=== PATIENT | female | born 1965 | race Caucasian/White ===

== ENCOUNTER 2018-06-24 16:11 | Emergency (ER) | payer OTHER ==
[~2018-06-24] VITALS: Ht 170.2 cm; Wt 117.0 kg
[2018-06-24] MEDS ORDERED: BENZOCAINE (DENTAL) 20 % SPRAY 60ML MT ONE ×2 (19:00→19:13)
[2018-06-24] MEDS ORDERED: LIDOCAINE VISCOUS 2% 15ML UD PO ONE (19:45)
[2018-06-24] MEDS ORDERED: ALUM & MAG HYDROX-SIMETH LIQ(MAALOX) 30 ML PO ONE (19:45)
[2018-06-24 19:59] VITALS: BP 170/102
== END 2018-06-24 20:51 | disposition home or self-care (01) ==
LOC: ER 16:16
DX: R07.0 Pain in throat (principal); R09.89 Other specified symptoms and signs involving the circulatory and respiratory systems; T17.228A Food in pharynx causing other injury, initial encounter; X58.XXXA Exposure to other specified factors, initial encounter; Y93.89 Activity, other specified; Y99.8 Other external cause status; Y92.89 Other specified places as the place of occurrence of the external cause
CPT/HCPCS: 70360; 71045

== ENCOUNTER 2019-05-23 15:05 | Inpatient (IN) | payer OTHER ==
[~2019-05-23] VITALS: Ht 170.2 cm; Wt 114.0 kg
[2019-05-23] MEDS ORDERED: IPRATROPIUM BROM 0.5 MG/2.5ML INH SOL ONE (15:13)
[2019-05-23] MEDS ORDERED: ALBUTEROL SULF 2.5 MG/0.5ML(0.5%) NEB SOLN ONE (15:13)
[2019-05-23] MEDS ORDERED: methylPREDNISolone SOD SUCC 125 MG/2 ML VL ONE (15:14)
[2019-05-23] MEDS ORDERED: SODIUM CHLORIDE 0.9% 1,000 ML IV ONE (15:21)
[2019-05-23] MEDS ORDERED: methylPREDNISolone SOD SUCC 125 MG/2 ML VL IV ONE (15:30)
[2019-05-23] MEDS ORDERED: ALBUTEROL SULF 2.5 MG/0.5ML(0.5%) NEB SOLN NEB ONE ×3 (15:30)
[2019-05-23] MEDS ORDERED: IPRATROPIUM BROM 0.5 MG/2.5ML INH SOL NEB ONE ×3 (15:30)
[2019-05-23] MEDS ORDERED: cefTRIAXone 1GM/50ML D5W 50 ML IV ONE (15:30)
[2019-05-23 15:34] LABS: Basophils # (auto) 0.1 uL; Basophils % (auto) 1.1 % (0.0-2.0); Eosinophils # (auto) 0.2 uL; Eosinophils % (auto) 1.8 % (0.0-7.0); Hematocrit 44.9 % (36.0-46.0); Hemoglobin 14.5 g/dL (12.2-16.2); Lymphocytes # (auto) 2.6 uL; Lymphocytes % (auto) 22.8 % (10.0-50.0); Mean Corpuscular Hemoglobin 28.8 pg (28.0-32.0); Mean Corpuscular Hgb Conc. 32.4 g/dL (32.0-36.0); Monocytes # (auto) 0.7 uL; Monocytes % (auto) 5.8 % (0.0-12.0); Neutrophils # (auto) 7.7 uL; Neutrophils % (auto) 68.5 % (37.0-80.0); Platelet Count (auto) 327 10^3/uL (140-450); Red Blood Cells 5.04 10^6/uL (4.0-5.20); Red Cell Distribution Width 14.7 % (11.8-14.3); White Blood Cell 11.3 10^3/uL (4.4-10.8)
[2019-05-23 15:45] LABS: Alanine Aminotransferase 29 U/L (13-56); Albumin 3.5 g/dL (3.4-5.0); Anion Gap 9 (5-15); Blood Urea Nitrogen 9 mg/dL (7-18); Carbon Dioxide 25 mmol/L (21-32); Chloride 106 mmol/L (98-107); Glucose 129 mg/dL (74-106); Sodium 140 mmol/L (136-145)
[2019-05-23 15:50] LABS: Alkaline Phosphatase 90 U/L (45-117); Aspartate Aminotransferase 23 U/L (15-37); BUN/Creatinine Ratio 8.9; Bilirubin, Total 0.5 mg/dL (0.2-1.0); GFR African American 74 mL/min; GFR Non-African American 61 mL/min; Total Protein 7.6 g/dL (6.4-8.2)
[2019-05-23 16:04] LABS: INR 0.93 (0.9-1.15)
[2019-05-23] MEDS ORDERED: NITROGLYCERIN 0.4 MG SL TAB SL PRN (16:30)
[2019-05-23] MEDS ORDERED: MORPHINE SULF INJ 2 MG/ML SYRINGE 1ML IV PRN (16:30)
[2019-05-23] MEDS ORDERED: ACETAMINOPHEN 500 MG TAB PO PRN (16:30)
[2019-05-23] MEDS ORDERED: ONDANSETRON HCL 4 MG/2 ML VIAL IV PRN (16:30)
[2019-05-23] MEDS: MORPHINE SULF INJ 2 MG/ML SYRINGE 1ML IV PRN (17:08)
[2019-05-23] MEDS: IPRATROPIUM BROM 0.5 MG/2.5ML INH SOL NEB SCH ×2 (18:29→22:40)
[2019-05-23] MEDS: ALBUTEROL SULF 2.5 MG/0.5ML(0.5%) NEB SOLN NEB SCH ×2 (18:29→22:40)
[2019-05-23] MEDS: BUDESONIDE (INHALATION) 0.5 MG/2 ML NEB NEB SCH (18:29)
[2019-05-23] MEDS ORDERED: HYDR-4833 PO (20:07)
--- NOTE | 2019-05-23 21:15 | NUR ---
[facility] unit, no SBAR received. Patient oriented by QUAN GARCIA, primary RN, to unit, room, bed, and unit policies regarding patient care and visiting hours. Patient now on continuous telemetry monitoring, tele box #11 and telemetry reading on arrival to unit is sinus tachycardia 114. Pt's O2 sat 96, therefore O2 not started. Pt weighed by bedscale and encouraged to call if she needs anything. All questions and concerns addressed, patient verbalized understanding. at bedside. Bed in low position with HOB in high Wylie's. Nurse call light within pt's and 's reach.
[2019-05-23 22:50] VITALS: BP 127/73
[2019-05-23] MEDS: methylPREDNISolone SOD SUCC 40 MG/ML VL IV SCH (22:59)
--- NOTE | 2019-05-23 23:52 | NUR ---
O2 started at 2lpm per pt request. Pt anxious talking rapidly, encouraged her to relax. She states pain med prev received from this RN is helping. RN adjusted temp in room for pt's comfort.
[2019-05-24] MEDS: IPRATROPIUM BROM 0.5 MG/2.5ML INH SOL NEB SCH ×6 (02:41→21:43)
[2019-05-24] MEDS: ALBUTEROL SULF 2.5 MG/0.5ML(0.5%) NEB SOLN NEB SCH ×6 (02:41→21:43)
[2019-05-24 05:24] VITALS: BP 106/64
[2019-05-24] MEDS: MORPHINE SULF INJ 2 MG/ML SYRINGE 1ML IV PRN (05:49)
[2019-05-24] MEDS: LORazepam 0.5 MG TAB PO PRN ×2 (05:51→20:23)
[2019-05-24 06:15] LABS: Hematocrit 42.2 % (36.0-46.0); Hemoglobin 13.9 g/dL (12.2-16.2); Mean Corpuscular Hemoglobin 29.3 pg (28.0-32.0); Mean Corpuscular Volume 88.8 fL (80.0-100.0); Platelet Count (auto) 309 10^3/uL (140-450); Red Blood Cells 4.75 10^6/uL (4.0-5.20); Red Cell Distribution Width 15.1 % (11.8-14.3); White Blood Cell 18.3 10^3/uL (4.4-10.8)
[2019-05-24] MEDS: BUDESONIDE (INHALATION) 0.5 MG/2 ML NEB NEB SCH ×2 (06:28→21:43)
[2019-05-24 06:37] LABS: Calcium 8.7 mg/dL (8.5-10.1); Potassium 4.1 mmol/L (3.5-5.1)
[2019-05-24 06:38] LABS: Basophils % (manual) 0 (0.0-2.0); Blast Cells 0; Eosinophils % (manual) 0 (0-7); Metamyelocytes % 0; Myelocytes % 0; Promyelocytes % 0; Reactive Lymphocytes 0
[2019-05-24 06:40] LABS: BUN/Creatinine Ratio 7.1
--- NOTE | 2019-05-24 07:30 | NUR ---
Opening Shift Note Assumed care of patient, awake, alert, and oriented x4. No S/S of distress/SOB, but patient is reporting upper left abdominal pain of 7/10. IV is in the right AC 20 gauge and is asymptomatic, intact, patent, and saline locked. Bed is locked and in lowest position and call light is within reach. Instructed on POC and to call for assist PRN, and patient verbalized understanding. Will continue to monitor for changes Q1hr and PRN.
[2019-05-24 08:00] VITALS: BP 122/60
[2019-05-24 08:14] LABS: Band Neutrophils % (manual) 1; Lymphocytes % (manual) 8 (10.0-50.0); Monocytes % (manual) 1 (0-12)
[2019-05-24] MEDS: FAMOTIDINE 20 MG TAB PO SCH (10:00)
--- NOTE | 2019-05-24 10:00 | NUR ---
Patient refused 1000 dose of Pepcid; patient states that it hurts her stomach.
[2019-05-24] MEDS: methylPREDNISolone SOD SUCC 40 MG/ML VL IV SCH ×2 (10:05→22:54)
[2019-05-24] MEDS: amLODIPine BESYLATE 5 MG TAB PO SCH (10:06)
[2019-05-24] MEDS: cefTRIAXone 1GM/50ML D5W 50 ML IV SCH (10:07)
[2019-05-24] MEDS: AZITHROMYCIN 500MG/ 250ML 250 ML IV SCH (10:07)
--- NOTE | 2019-05-24 10:15 | NUR ---
Respiratory Therapist at bedside for treatment.
[2019-05-24 10:35] VITALS: BP 122/60
[2019-05-24] MEDS: HYDROcodone-ACET 5/325MG TAB PO PRN ×2 (12:11→20:25)
[2019-05-24 13:00] VITALS: BP 119/67
[2019-05-24] MEDS: SODIUM CHLORIDE 0.9% 1,000 ML IV SCH (15:07)
[2019-05-24 17:00] VITALS: BP 118/72
--- NOTE | 2019-05-24 17:04 | NUR ---
re-assessment Per consult needs PCP. Becky James to see patient in AM for PCP. Addendum: 05/24/19 at 1704 by Becky Howard Amended: Links added.
--- NOTE | 2019-05-24 19:30 | NUR ---
Opening Shift Note Assumed care of patient, awake, A&O x4. No S/S of distress/SOB, and pt denies pain at this time. IV is in the right AC 20 gauge and is asymptomatic, intact, with NS infusing at 60ml / hr. Bed in lowest position and call light is within reach. Instructed on POC and to call for assist PRN; pt VU. Will continue to monitor for changes Q1hr and PRN
[2019-05-24 22:00] VITALS: BP 111/67
[2019-05-24] MEDS: ATORVASTATIN 20 MG TAB PO SCH (22:55)
[2019-05-25 05:00] VITALS: BP 102/59
[2019-05-25] MEDS: ALBUTEROL SULF 2.5 MG/0.5ML(0.5%) NEB SOLN NEB SCH ×5 (05:48→22:33)
[2019-05-25] MEDS: IPRATROPIUM BROM 0.5 MG/2.5ML INH SOL NEB SCH ×5 (05:48→22:33)
[2019-05-25] MEDS: BUDESONIDE (INHALATION) 0.5 MG/2 ML NEB NEB SCH ×2 (05:48→18:30)
[2019-05-25] MEDS: HYDROcodone-ACET 5/325MG TAB PO PRN ×3 (06:27→23:16)
[2019-05-25 07:28] LABS: Basophils # (auto) 0.1 uL; Basophils % (auto) 0.4 % (0.0-2.0); Eosinophils # (auto) 0 uL; Hematocrit 40.2 % (36.0-46.0); Lymphocytes # (auto) 1.3 uL; Lymphocytes % (auto) 5.2 % (10.0-50.0); Mean Corpuscular Hemoglobin 28.8 pg (28.0-32.0); Mean Corpuscular Hgb Conc. 32.3 g/dL (32.0-36.0); Mean Corpuscular Volume 89.1 fL (80.0-100.0); Monocytes # (auto) 0.5 uL; Monocytes % (auto) 2.1 % (0.0-12.0); Neutrophils # (auto) 23.1 uL; Neutrophils % (auto) 92.3 % (37.0-80.0); Platelet Count (auto) 330 10^3/uL (140-450); Red Blood Cells 4.52 10^6/uL (4.0-5.20); Red Cell Distribution Width 14.9 % (11.8-14.3)
[2019-05-25 07:48] LABS: Calcium 8.9 mg/dL (8.5-10.1); Magnesium 2.2 mg/dL (1.6-2.6); Potassium 4.2 mmol/L (3.5-5.1)
[2019-05-25 08:00] VITALS: BP 95/56
--- NOTE | 2019-05-25 08:00 | NUR ---
Opening Shift Note Assumed care of patient, awake and alert. No S/S of distress/SOB or pain. Instructed on POC and to call for assist PRN, will continue to monitor for changes Q1hr and PRN.
[2019-05-25] MEDS: SODIUM CHLORIDE 0.9% 1,000 ML IV SCH (08:42)
[2019-05-25] MEDS: cefTRIAXone 1GM/50ML D5W 50 ML IV SCH (09:26)
[2019-05-25] MEDS: methylPREDNISolone SOD SUCC 40 MG/ML VL IV SCH ×2 (09:26→22:36)
[2019-05-25] MEDS: ENOXAPARIN SOD 40 MG/0.4 ML SYRINGE SC SCH ×2 (09:27→22:37)
[2019-05-25] MEDS: FAMOTIDINE 20 MG TAB PO SCH (09:30)
[2019-05-25] MEDS: amLODIPine BESYLATE 5 MG TAB PO SCH (10:00)
[2019-05-25] MEDS: AZITHROMYCIN 500MG/ 250ML 250 ML IV SCH (10:37)
[2019-05-25 12:00] VITALS: BP 141/80
[2019-05-25 17:00] VITALS: BP 116/69
--- NOTE | 2019-05-25 17:05 | NUR ---
D. Dimer is below 0.19, will hold the order for CT Angio of the chest as instructed by Dr. Hatch.
--- NOTE | 2019-05-25 19:45 | NUR ---
Opening Shift Note: A&Ox4, resting in bed. Currently on 1LO2 via NC; does not wear at home; pain level 10/10 in substernal chest when coughing, and ambulates independently without assistive devices. Bed locked in lowest position, side rails up x2, and call light within reach. IV 20 g in right AC IID inserted on 05/23/19. Skin intact. POC discussed and questions answered. Will continue to round prn.
[2019-05-25] MEDS: LORazepam 0.5 MG TAB PO PRN (20:41)
[2019-05-25 22:00] VITALS: BP 114/66
--- NOTE | 2019-05-25 22:00 | NUR ---
Verbal order received from [facility] INFRASTRUCTURE ANALYST for one time dose of lactulose 30 ml for constipation.
[2019-05-25] MEDS ORDERED: LACTULOSE 20Gm/30ML SOLN ONE (22:25)
[2019-05-25] MEDS ORDERED: LACTULOSE 20Gm/30ML SOLN PO ONE (22:30)
[2019-05-25] MEDS: DOXYCYCLINE 100 MG TAB/CAP PO SCH (22:37)
[2019-05-25] MEDS: ATORVASTATIN 20 MG TAB PO SCH (22:37)
--- NOTE | 2019-05-25 23:10 | NUR ---
UA sample sent to lab via bullet system.
[2019-05-25 23:15] LABS: Urine WBC None Seen /hpf (0 - 5)
[2019-05-25 23:28] LABS: Urine Bacteria NONE SEEN /hpf (None Seen); Urine Blood Negative /uL (Negative); Urine Specific Gravity 1.023 (1.001-1.035)
[2019-05-26] MEDS ORDERED: TEMAZEPAM 15 MG CAP PO ONE (01:00)
[2019-05-26 05:00] VITALS: BP 98/61
[2019-05-26] MEDS: ALBUTEROL SULF 2.5 MG/0.5ML(0.5%) NEB SOLN NEB SCH ×5 (06:06→22:07)
[2019-05-26] MEDS: IPRATROPIUM BROM 0.5 MG/2.5ML INH SOL NEB SCH ×5 (06:06→22:06)
[2019-05-26 08:00] VITALS: BP 115/71
--- NOTE | 2019-05-26 08:00 | NUR ---
Opening Shift Note Assumed care of patient, awake and alert. No S/S of distress/SOB 5/10 anterior chest wall pain particularly when coughing. Instructed on POC and to call for assist PRN, will continue to monitor for changes Q1hr and PRN.
[2019-05-26] MEDS: ENOXAPARIN SOD 40 MG/0.4 ML SYRINGE SC SCH (09:36)
[2019-05-26] MEDS: DOXYCYCLINE 100 MG TAB/CAP PO SCH ×2 (09:36→20:36)
[2019-05-26] MEDS: methylPREDNISolone SOD SUCC 40 MG/ML VL IV SCH ×2 (09:36→20:35)
[2019-05-26] MEDS: BUDESONIDE (INHALATION) 0.5 MG/2 ML NEB NEB SCH ×2 (09:54→18:33)
[2019-05-26] MEDS: amLODIPine BESYLATE 5 MG TAB PO SCH (10:00)
[2019-05-26] MEDS: FAMOTIDINE 20 MG TAB PO SCH (10:00)
--- NOTE | 2019-05-26 11:24 | NUR ---
Hospitalist Rounds Dr. Hatch at bedside, patient is advised. O2 sat on room air-90% to 91%. Continued on O2 at 1-2lpm/nasal cannula. Patient downgraded to Med/Surg. Telebox returned to [facility].
[2019-05-26] MEDS ORDERED: LACTULOSE 20Gm/30ML SOLN PO ONE (11:30)
[2019-05-26 12:00] VITALS: BP 132/74
[2019-05-26] MEDS: HYDROcodone-ACET 5/325MG TAB PO PRN ×2 (12:13→23:45)
--- NOTE | 2019-05-26 15:35 | NUR ---
Patient stated no bowel movement still after administration of lactulose PO. Dr. Hatch made aware. Orders received, may give citrate of magnesia one bottle. Will continue care.
[2019-05-26] MEDS ORDERED: MAGNESIUM CITRATE SOLUTION 300 ML BTL PO ONE (15:45)
[2019-05-26 17:00] VITALS: BP 130/86
--- NOTE | 2019-05-26 19:00 | NUR ---
Patient out of bed. Gave reports to the import and export clerk RN.
--- NOTE | 2019-05-26 19:30 | NUR ---
Opening Shift Note: A&Ox4, resting in bed. Currently on 2LO2 via NC; does not wear at home; pain level 8/10 in substernal chest when coughing, and ambulates independently without assistive devices. Bed locked in lowest position, side rails up x2, and call light within reach. IV 22 g right forearm IID inserted on 05/26/19. Skin intact. POC discussed and questions answered. Will continue to round prn.
[2019-05-26] MEDS: ATORVASTATIN 20 MG TAB PO SCH (20:36)
[2019-05-26 22:05] VITALS: BP 149/89
[2019-05-26] MEDS: TEMAZEPAM 15 MG CAP PO PRN (23:46)
[2019-05-27] VITALS (7 sets, daily range): BP systolic 111–139; BP diastolic 59–87
[2019-05-27] MEDS: ALBUTEROL SULF 2.5 MG/0.5ML(0.5%) NEB SOLN NEB SCH ×5 (06:34→22:36)
[2019-05-27] MEDS: IPRATROPIUM BROM 0.5 MG/2.5ML INH SOL NEB SCH ×5 (06:35→22:36)
[2019-05-27] MEDS: HYDROcodone-ACET 5/325MG TAB PO PRN ×2 (06:38→20:11)
[2019-05-27 07:13] LABS: Basophils # (auto) 0 uL; Basophils % (auto) 0.1 % (0.0-2.0); Eosinophils # (auto) 0 uL; Hematocrit 39.8 % (36.0-46.0); Lymphocytes # (auto) 1.4 uL; Lymphocytes % (auto) 9.6 % (10.0-50.0); Mean Corpuscular Hgb Conc. 32.6 g/dL (32.0-36.0); Monocytes # (auto) 0.8 uL; Monocytes % (auto) 5.3 % (0.0-12.0); Neutrophils # (auto) 12.6 uL; Nucleated Red Blood Cells % 0.1 %; Platelet Count (auto) 300 10^3/uL (140-450); Red Blood Cells 4.46 10^6/uL (4.0-5.20); White Blood Cell 14.9 10^3/uL (4.4-10.8)
--- NOTE | 2019-05-27 08:00 | NUR ---
ASSESSMENT NOTE PATIENT IS ALERT ORIENTED X4, VERY PLEASANT, SITTING UP GETTING READY TO EAT BREAKFAST, DENIES ANY PAIN OR SHORTNESS OF BREATH, SELF REPOSITION NEEDED, AMBULATE NEEDED, CALL LIGHT WITHIN REACH.
[2019-05-27] MEDS: LACTULOSE 20Gm/30ML SOLN PO SCH (08:46)
[2019-05-27] MEDS: methylPREDNISolone SOD SUCC 40 MG/ML VL IV SCH ×2 (08:46→21:56)
[2019-05-27] MEDS: DOXYCYCLINE 100 MG TAB/CAP PO SCH ×2 (08:47→21:56)
[2019-05-27] MEDS: amLODIPine BESYLATE 5 MG TAB PO SCH (08:48)
[2019-05-27] MEDS: FAMOTIDINE 20 MG TAB PO SCH (08:49)
--- NOTE | 2019-05-27 09:00 | NUR ---
BM PATIENT HAS SMALL SOFT BM.
[2019-05-27] MEDS: BUDESONIDE (INHALATION) 0.5 MG/2 ML NEB NEB SCH ×2 (10:10→19:18)
--- NOTE | 2019-05-27 15:16 | NUR ---
DR NGUYỄN AT BED SIDE FOLLOWING UP ON PT, PT STATE , I BEEN HAVING CHEST PAIN ON AND OFF, AND I FEEL DIZZY> NEW ORDERS OBTAIN.
--- NOTE | 2019-05-27 17:00 | NUR ---
ECG IS DONE, PATIENT'S AT BED SIDE AWARE
--- NOTE | 2019-05-27 18:41 | NUR ---
PATIENT CONTINUE STABLE, DENIES ANY PAIN OR SHORTNESS OF BREATH, CONTINUE MONITORING.
--- NOTE | 2019-05-27 19:40 | NUR ---
OPENING NOTE REPORT RECEIVED FROM DAY SHIFT RN PATIENT IS RESTING IN BED. IS AT BEDSIDE. PHYSICAL ASSESSMENT DONE-SEE INTERVENTIONS. POC FOR TONIGHT DISCUSSED, ALL QUESTIONS ANSWERED. WILL MONITOR THROUGHOUT SHIFT. CALL LIGHT WITHIN REACH.
[2019-05-27] MEDS: TEMAZEPAM 15 MG CAP PO PRN (21:57)
[2019-05-27] MEDS: ATORVASTATIN 20 MG TAB PO SCH (21:57)
[2019-05-27] MEDS: LORazepam 0.5 MG TAB PO PRN (23:48)
[2019-05-28 05:00] VITALS: BP 129/74
[2019-05-28] MEDS: IPRATROPIUM BROM 0.5 MG/2.5ML INH SOL NEB SCH ×5 (06:35→22:14)
[2019-05-28] MEDS: ALBUTEROL SULF 2.5 MG/0.5ML(0.5%) NEB SOLN NEB SCH ×5 (06:35→22:14)
--- NOTE | 2019-05-28 06:55 | NUR ---
CLOSING NOTE PATIENT SLEEPING. NO S/S OF DISTRESS NOTED CALL LIGHT WITHIN REACH. WILL ENDORSE CARE TO AM SHIFT RN
[2019-05-28 07:00] LABS: Basophils # (auto) 0 uL; Basophils % (auto) 0.2 % (0.0-2.0); Eosinophils # (auto) 0 uL; Hematocrit 40.9 % (36.0-46.0); Hemoglobin 13.4 g/dL (12.2-16.2); Lymphocytes # (auto) 1.3 uL; Lymphocytes % (auto) 9.3 % (10.0-50.0); Mean Corpuscular Hemoglobin 29.2 pg (28.0-32.0); Mean Corpuscular Hgb Conc. 32.7 g/dL (32.0-36.0); Mean Corpuscular Volume 89.2 fL (80.0-100.0); Monocytes # (auto) 0.6 uL; Monocytes % (auto) 4.4 % (0.0-12.0); Neutrophils # (auto) 12.2 uL; Neutrophils % (auto) 86.1 % (37.0-80.0); Platelet Count (auto) 317 10^3/uL (140-450); Red Blood Cells 4.58 10^6/uL (4.0-5.20); Red Cell Distribution Width 14.8 % (11.8-14.3); White Blood Cell 14.2 10^3/uL (4.4-10.8)
[2019-05-28 07:15] LABS: Anion Gap 6 (5-15); Blood Urea Nitrogen 19 mg/dL (7-18); Calcium 8.5 mg/dL (8.5-10.1); Carbon Dioxide 28 mmol/L (21-32); Chloride 104 mmol/L (98-107); Glucose 155 mg/dL (74-106); Potassium 4.4 mmol/L (3.5-5.1); Sodium 138 mmol/L (136-145)
[2019-05-28 07:20] LABS: BUN/Creatinine Ratio 22.9; GFR African American 93 mL/min; GFR Non-African American 77 mL/min
[2019-05-28 08:00] VITALS: BP 133/81
--- NOTE | 2019-05-28 08:00 | NUR ---
ASSESSMENT NOTE PATIENT IS ALERT ORIENTED X4, SITTING UP GETTING READY TO EAT BREAKFAST, DENIES CHEST PAIN OR SHORTNESS OF BREATH, SELF REPOSITION NEEDED, AMBULATE NEEDED, CALL LIGHT WITHIN REACH.
[2019-05-28 08:29] VITALS: BP 131/67
[2019-05-28] MEDS: methylPREDNISolone SOD SUCC 40 MG/ML VL IV SCH ×2 (09:12→22:15)
[2019-05-28] MEDS: DOXYCYCLINE 100 MG TAB/CAP PO SCH ×2 (09:12→22:15)
[2019-05-28] MEDS: LACTULOSE 20Gm/30ML SOLN PO SCH (09:13)
[2019-05-28] MEDS: FAMOTIDINE 20 MG TAB PO SCH (09:13)
[2019-05-28] MEDS: amLODIPine BESYLATE 5 MG TAB PO SCH (09:13)
[2019-05-28] MEDS: BUDESONIDE (INHALATION) 0.5 MG/2 ML NEB NEB SCH ×2 (10:21→22:14)
[2019-05-28 13:00] VITALS: BP 113/72
[2019-05-28] MEDS: HYDROcodone-ACET 5/325MG TAB PO PRN (15:40)
--- NOTE | 2019-05-28 15:41 | NUR ---
DR NGUYỄN AT BED SIDE FOLLOWING UP ON PT WITH NEW ORDERS, PATIENT'S HUSBANMD AWARE AT BED SIDE.
[2019-05-28 17:00] VITALS: BP 125/75
--- NOTE | 2019-05-28 17:44 | NUR ---
DR FRIAS AT BED SIDE FOLLOWING UP ON PT WITH NEW ORDERS
--- NOTE | 2019-05-28 18:39 | NUR ---
PATIENT CONTINUE STABLE, CONTINUE MONITORING.
--- NOTE | 2019-05-28 19:30 | NUR ---
OPENING NOTE REPORT RECEIVED FROM DAY SHIFT RN PATIENT IS A/OX4 RESTING IN BED, IS AT BEDSIDE. POC DISCUSSED AND ALL QUESTIONS ANSWERED. PATIENT STATES SHE WANTS TO TRY THE CPAP MACHINE THAT SUGGESTED. WILL PAGE FOR ORDERS. WILL MONITOR THROUGHOUT SHIFT, CALL LIGHT WITHIN REACH.
[2019-05-28 22:00] VITALS: BP 134/64
[2019-05-28] MEDS: TOPIRAMATE 25 MG TAB PO SCH (22:16)
[2019-05-28] MEDS: ATORVASTATIN 20 MG TAB PO SCH (22:16)
[2019-05-28] MEDS: TEMAZEPAM 15 MG CAP PO PRN (22:21)
--- NOTE | 2019-05-29 04:07 | NUR ---
PT FOUND OFF CPAP WHEN ENTERING THE ROOM AT THIS TIME. PT IS IN NO DISTRESS, SHE IS CURRENTLY SLEEPING.
[2019-05-29 05:00] VITALS: BP 112/67
[2019-05-29] MEDS: IPRATROPIUM BROM 0.5 MG/2.5ML INH SOL NEB SCH ×3 (05:49→14:10)
[2019-05-29] MEDS: ALBUTEROL SULF 2.5 MG/0.5ML(0.5%) NEB SOLN NEB SCH ×3 (05:49→14:10)
--- NOTE | 2019-05-29 07:04 | NUR ---
CLOSING NOTE PATIENT IS SLEEPING. VISIBLE RISE AND FALL OF CHEST NOTED. NO S/S OF DISTRESS. CALL LIGHT WITHIN REACH. WILL ENDORSE CARE TO AM SHIFT RN
[2019-05-29 07:11] LABS: Basophils # (auto) 0 uL; Basophils % (auto) 0.3 % (0.0-2.0); Eosinophils # (auto) 0 uL; Hematocrit 44.6 % (36.0-46.0); Hemoglobin 14.5 g/dL (12.2-16.2); Lymphocytes # (auto) 1.6 uL; Lymphocytes % (auto) 8.9 % (10.0-50.0); Mean Corpuscular Hemoglobin 28.9 pg (28.0-32.0); Mean Corpuscular Hgb Conc. 32.4 g/dL (32.0-36.0); Monocytes # (auto) 0.7 uL; Monocytes % (auto) 3.8 % (0.0-12.0); Neutrophils # (auto) 15.2 uL; Nucleated Red Blood Cells % 0.1 %; Platelet Count (auto) 317 10^3/uL (140-450); Red Blood Cells 5.01 10^6/uL (4.0-5.20); Red Cell Distribution Width 15.1 % (11.8-14.3); White Blood Cell 17.4 10^3/uL (4.4-10.8)
[2019-05-29 07:26] LABS: Potassium 4.7 mmol/L (3.5-5.1)
[2019-05-29 07:38] LABS: BUN/Creatinine Ratio 21.3; Calcium 8.6 mg/dL (8.5-10.1)
[2019-05-29] MEDS: HYDROcodone-ACET 5/325MG TAB PO PRN (07:53)
[2019-05-29] MEDS ORDERED: LORazepam 2MG/ML-1ML VIAL IV ONE (09:30)
[2019-05-29 09:35] VITALS: BP 108/69
[2019-05-29] MEDS: FAMOTIDINE 20 MG TAB PO SCH (10:00)
[2019-05-29] MEDS: methylPREDNISolone SOD SUCC 40 MG/ML VL IV SCH (10:24)
[2019-05-29] MEDS: DOXYCYCLINE 100 MG TAB/CAP PO SCH (10:24)
[2019-05-29] MEDS: LACTULOSE 20Gm/30ML SOLN PO SCH (10:24)
[2019-05-29] MEDS: amLODIPine BESYLATE 5 MG TAB PO SCH (10:25)
[2019-05-29] MEDS: TOPIRAMATE 25 MG TAB PO SCH (10:25)
[2019-05-29] MEDS: BUDESONIDE (INHALATION) 0.5 MG/2 ML NEB NEB SCH (10:32)
[2019-05-29 10:49] LABS: Folate (Folic Acid) 8.87 ng/mL (5.38-24)
--- NOTE | 2019-05-29 10:53 | NUR ---
IV removal IV on the right forearm infiltrated. IV DC'd with clean sterile technique, catheter fully intact. Pressure dressing applied to site. Patient tolerated well.
--- NOTE | 2019-05-29 11:46 | NUR ---
Nutrition consult/assessment Notes please see attached link for complete assessment Est. Needs ABW [id number] kcal (20-23 kcal/kgBW), 87-95 gms pro (1.0-1.1 gms/kgBW). Will continue to monitor pertinent labs and reassess nutrient need prn Addendum: 05/29/19 at [address] Amended: Links added.
[2019-05-29 12:36] VITALS: BP 149/86
--- NOTE | 2019-05-29 14:50 | NUR ---
Patient may have Brain, head and neck MRI as outpatient as advised by .
[2019-05-29 15:43] VITALS: BP 149/86
--- NOTE | 2019-05-29 16:20 | NUR ---
Discharge instructions given as ordered. Encourage to follow up with PMD for outpatient open MRI to diagnose multiple sclerosis, outpatient sleep study to diagnose sleep apnea as instructed. Patient instructed to continue Topamax 50mg PO BID as recommended by Dr. Blanco neurologist. O2 sat on room air-96%. All questions and concerns addressed. Patient verbalized understanding. Medication reconciliation form completed and copy given to patient. IV removed with catheter intact, pressure dressing applied. Telemetry unit returned to [facility]. Patient ambulated with all personal belongings, accompanied by staff and family member. No distress noted at time of departure.
== END 2019-05-29 16:20 | disposition home or self-care (01) | DRG 141 ==
LOC: ER 15:05 → TELE 15:06 → TELE-EAST 20:47 → EAST 05-26 19:03
PROVIDERS: ADMIT Nurse Practitioner Acute Care; ATTEND Internal Medicine
PROC: 5A09357 Assistance with Respiratory Ventilation, Less than 24 Consecutive Hours, Continuous Positive Airway Pressure (ICD-10-PCS; principal; 2019-05-28)
DX: J45.902 Unspecified asthma with status asthmaticus (principal); J96.00 Acute respiratory failure, unspecified whether with hypoxia or hypercapnia; N17.0 Acute kidney failure with tubular necrosis; E66.01 Morbid (severe) obesity due to excess calories; K21.9 Gastro-esophageal reflux disease without esophagitis; I10 Essential (primary) hypertension; E78.00 Pure hypercholesterolemia, unspecified; D72.829 Elevated white blood cell count, unspecified; E78.5 Hyperlipidemia, unspecified; F41.9 Anxiety disorder, unspecified; F17.200 Nicotine dependence, unspecified, uncomplicated; G47.10 Hypersomnia, unspecified; J20.9 Acute bronchitis, unspecified; T38.0X5A Adverse effect of glucocorticoids and synthetic analogues, initial encounter; Y92.89 Other specified places as the place of occurrence of the external cause; Z68.39 Body mass index [BMI] 39.0-39.9, adult; Z83.3 Family history of diabetes mellitus; Z90.49 Acquired absence of other specified parts of digestive tract
CPT/HCPCS: 36415; 71045; 80048; 80053; 80061; 81001; 82607; 82746; 83036; 83735; 83880; 84155; 84165; 84443; 84484; 85007; 85025; 85027; 85379; 85610; 85730; 87070; 87205; 87804; 93306; 94640; 94644; 94761; 96365; 96375; G0378; J0696

== ENCOUNTER 2019-07-07 22:34 | Emergency (ER) | payer OTHER ==
[~2019-07-07] VITALS: Ht 170.2 cm; Wt 113.4 kg
[~2019-07-07 22:34] MED LIST: HYDR-4833 PO
[2019-07-07 23:48] VITALS: BP 107/77
[2019-07-08] MEDS ORDERED: HYDROcodone-ACET 10/325MG TAB PO ONE (03:15)
[2019-07-08] MEDS ORDERED: BACLOFEN 10 MG TAB PO ONE (03:15)
[2019-07-08] MEDS ORDERED: DexAMETHasone SOD PHOS 10MG/1ML VIAL INJ IM ONE (03:15)
== END 2019-07-08 04:08 | disposition home or self-care (01) ==
LOC: ER 22:34
DX: S00.83XA Contusion of other part of head, initial encounter (principal); S60.212A Contusion of left wrist, initial encounter; S60.211A Contusion of right wrist, initial encounter; S30.0XXA Contusion of lower back and pelvis, initial encounter; J45.909 Unspecified asthma, uncomplicated; E78.5 Hyperlipidemia, unspecified; I10 Essential (primary) hypertension; F10.129 Alcohol abuse with intoxication, unspecified; E66.9 Obesity, unspecified; Z68.39 Body mass index [BMI] 39.0-39.9, adult; Z86.39 Personal history of other endocrine, nutritional and metabolic disease; Y93.89 Activity, other specified; Y04.2XXA Assault by strike against or bumped into by another person, initial encounter; Y92.89 Other specified places as the place of occurrence of the external cause; Y99.8 Other external cause status
CPT/HCPCS: 70450; 72125; 72220; 73120; 73502; 96372; 99284; J1100

== ENCOUNTER 2021-02-14 21:31 | Emergency (ER) | payer MEDICAID, OTHER ==
[~2021-02-14] VITALS: Ht 170.2 cm; Wt 97.5 kg
[2021-02-14] MEDS ORDERED: SODIUM CHLORIDE 0.9% 1,000 ML IV ONE (22:00)
[2021-02-14 23:31] LABS: Basophils # (auto) 0.1 10 ^3/uL (0-0.2); Basophils % (auto) 0.8 % (0.0-2.0); Eosinophils # (auto) 0.3 10 ^3/uL (0-0.8); Eosinophils % (auto) 2.5 % (0.0-7.0); Hemoglobin 14.8 g/dL (12.2-16.2); Lymphocytes % (auto) 27.2 % (10.0-50.0); Mean Corpuscular Hemoglobin 29.6 pg (28.0-32.0); Mean Corpuscular Hgb Conc. 34.4 g/dL (32.0-36.0); Mean Corpuscular Volume 86.3 fL (80.0-100.0); Monocytes # (auto) 0.9 10 ^3/uL (0-1.3); Monocytes % (auto) 8.4 % (0.0-12.0); Neutrophils # (auto) 6.7 10 ^3/uL (1.6-8.6); Neutrophils % (auto) 61.1 % (37.0-80.0); Nucleated Red Blood Cells % 0.3 %; Platelet Count (auto) 338 10^3/uL (140-450); Red Blood Cells 4.98 10^6/uL (4.0-5.20); White Blood Cell 10.9 10^3/uL (4.4-10.8)
[2021-02-14 23:45] LABS: INR 0.98 (0.9-1.15); Partial Thromboplastin Time 31.2 sec (23.0-31.2)
[2021-02-14 23:48] LABS: Albumin 3.7 g/dL (3.4-5.0); BUN/Creatinine Ratio 16.1; Calcium 8.9 mg/dL (8.5-10.1); Magnesium 2.1 mg/dL (1.6-2.6)
[2021-02-14 23:51] LABS: Bilirubin, Total 0.3 mg/dL (0.2-1.0); Total Protein 7.7 g/dL (6.4-8.2)
[2021-02-14 23:54] LABS: Potassium 2.9 mmol/L (3.5-5.1)
[2021-02-15] MEDS ORDERED: POTASSIUM CHL 20MEQ/100ML 100 ML IV ONE (02:00)
[2021-02-15] MEDS ORDERED: LORazepam 0.5 MG TAB PO ONE (02:00)
[2021-02-15] MEDS ORDERED: POTASSIUM EFFERVESENT TAB 25 MEQ PO ONE (02:00)
[2021-02-15 06:37] VITALS: BP 113/85
== END 2021-02-15 06:37 | disposition home or self-care (01) ==
LOC: ER 21:31
DX: R73.9 Hyperglycemia, unspecified (principal); E86.0 Dehydration; E87.6 Hypokalemia; J45.909 Unspecified asthma, uncomplicated; E78.5 Hyperlipidemia, unspecified; I10 Essential (primary) hypertension
CPT/HCPCS: 36415; 36600; 71045; 80053; 82010; 82805; 82962; 83036; 83735; 83880; 85025; 85610; 85730; 96361; 96365; 96366; 99285; J3480; J7030

== ENCOUNTER 2022-01-01 08:02 | Emergency (ER) | payer MEDICAID ==
[~2022-01-01] VITALS: Ht 170.2 cm; Wt 113.4 kg
[2022-01-01] MEDS ORDERED: ONDANSETRON HCL 4 MG/2 ML VIAL IV ONE (09:30)
[2022-01-01 09:39] LABS: Basophils # (auto) 0 10 ^3/uL (0-0.2); Basophils % (auto) 0.6 % (0.0-2.0); Eosinophils # (auto) 0.2 10 ^3/uL (0-0.8); Eosinophils % (auto) 3.8 % (0.0-7.0); Hematocrit 39.7 % (36.0-46.0); Hemoglobin 12.9 g/dL (12.2-16.2); Lymphocytes # (auto) 1.8 10 ^3/uL (0.4-5.4); Lymphocytes % (auto) 30.6 % (10.0-50.0); Mean Corpuscular Hemoglobin 28.6 pg (28.0-32.0); Mean Corpuscular Hgb Conc. 32.6 g/dL (32.0-36.0); Mean Corpuscular Volume 87.7 fL (80.0-100.0); Monocytes # (auto) 0.6 10 ^3/uL (0-1.3); Monocytes % (auto) 10.5 % (0.0-12.0); Neutrophils # (auto) 3.1 10 ^3/uL (1.6-8.6); Neutrophils % (auto) 54.5 % (37.0-80.0); Red Blood Cells 4.53 10^6/uL (4.0-5.20); Red Cell Distribution Width 14.1 % (11.8-14.3); White Blood Cell 5.7 10^3/uL (4.4-10.8)
[2022-01-01 09:57] LABS: Albumin 3.5 g/dL (3.4-5.0); Calcium 8.9 mg/dL (8.5-10.1); Potassium 3.9 mmol/L (3.5-5.1)
[2022-01-01 10:00] LABS: BUN/Creatinine Ratio 19.3; Bilirubin, Total 0.4 mg/dL (0.2-1.0); Total Protein 7.2 g/dL (6.4-8.2)
[2022-01-01 10:43] LABS: Urine Bacteria FEW /hpf (None Seen); Urine Blood Negative /uL (Negative); Urine Mucus FEW (None Seen); Urine Specific Gravity 1.026 (1.001-1.035); Urine WBC <1 /hpf (0 - 5)
[2022-01-01] MEDS ORDERED: LORazepam 2MG/ML-1ML VIAL IV PRN (10:45)
[2022-01-01] MEDS ORDERED: GADOTERATE MEG 10 MMOL/20ml INJ (0.5MMOL/ml) IV ONE (10:54)
[2022-01-01 18:45] VITALS: BP 109/65
== END 2022-01-01 18:48 | disposition home or self-care (01) ==
LOC: ER 08:02
DX: R42 Dizziness and giddiness (principal); G43.909 Migraine, unspecified, not intractable, without status migrainosus; I10 Essential (primary) hypertension; E03.9 Hypothyroidism, unspecified; E78.5 Hyperlipidemia, unspecified; J45.909 Unspecified asthma, uncomplicated; Z90.49 Acquired absence of other specified parts of digestive tract
CPT/HCPCS: 36415; 70553; 72142; 80053; 81001; 85025; 93005; 96374; 96375; 99285; A9575; J2060; J2405

== ENCOUNTER 2022-03-27 12:06 | Inpatient (IN) | payer MEDICAID ==
[~2022-03-27] VITALS: Ht 170.2 cm; Wt 102.9 kg
[2022-03-27] MEDS ORDERED: methylPREDNISolone SOD SUCC 125 MG/2 ML VL IV ONE (12:30)
[2022-03-27 15:40] LABS: Basophils # (auto) 0.1 10 ^3/uL (0-0.2); Basophils % (auto) 1.3 % (0.0-2.0); Eosinophils # (auto) 0.2 10 ^3/uL (0-0.8); Eosinophils % (auto) 2.1 % (0.0-7.0); Hematocrit 42.5 % (36.0-46.0); Hemoglobin 14.1 g/dL (12.2-16.2); Lymphocytes # (auto) 2.1 10 ^3/uL (0.4-5.4); Lymphocytes % (auto) 24.2 % (10.0-50.0); Mean Corpuscular Hgb Conc. 33.3 g/dL (32.0-36.0); Mean Corpuscular Volume 87.2 fL (80.0-100.0); Monocytes # (auto) 0.6 10 ^3/uL (0-1.3); Monocytes % (auto) 6.8 % (0.0-12.0); Neutrophils # (auto) 5.8 10 ^3/uL (1.6-8.6); Neutrophils % (auto) 65.6 % (37.0-80.0); Nucleated Red Blood Cells % 0.1 %; Red Blood Cells 4.87 10^6/uL (4.0-5.20); Red Cell Distribution Width 14.3 % (11.8-14.3); White Blood Cell 8.8 10^3/uL (4.4-10.8)
[2022-03-27 18:58] LABS: Albumin 3.6 g/dL (3.4-5.0); Calcium 9.2 mg/dL (8.5-10.1); Magnesium 2.8 mg/dL (1.6-2.6); Potassium 4.3 mmol/L (3.5-5.1)
[2022-03-27 19:06] LABS: BUN/Creatinine Ratio 13.3; Bilirubin, Total 0.4 mg/dL (0.2-1.0); CRP High Sensitivity 1.62 mg/dL (< 0.3); Total Protein 7.8 g/dL (6.4-8.2)
[2022-03-27] MEDS ORDERED: DOCUSATE SOD 100 MG CAP PO PRN (22:15)
[2022-03-27] MEDS ORDERED: ONDANSETRON HCL 4 MG/2 ML VIAL IV PRN (22:15)
[2022-03-27] MEDS ORDERED: IPRATROPIUM BROM 0.5 MG/2.5ML INH SOL NEB PRN (22:15)
[2022-03-27] MEDS ORDERED: ACETAMINOPHEN 325 MG TAB PO PRN (22:15)
[2022-03-27] MEDS ORDERED: HYDROcodone-ACET 5/325MG TAB PO PRN (22:15)
[2022-03-27] MEDS ORDERED: ALBUTEROL SULF 2.5 MG/0.5ML(0.5%) NEB SOLN NEB PRN (22:15)
[2022-03-27 22:26] LABS: Urine Bacteria FEW /hpf (None Seen); Urine Blood Negative /uL (Negative); Urine Hyaline Cast FEW /lpf (0 - 2); Urine Mucus FEW (None Seen); Urine Specific Gravity 1.026 (1.001-1.035); Urine WBC 2 /hpf (0 - 5)
[2022-03-27] MEDS ORDERED: NITROGLYCERIN 0.4 MG SL TAB SL PRN (23:15)
[2022-03-27] MEDS ORDERED: MORPHINE SULFATE INJ 2 MG/ml SYRG IV PRN (23:15)
[2022-03-28] VITALS (9 sets, daily range): BP systolic 113–127; BP diastolic 59–68
[2022-03-28] MEDS ORDERED: HYDROcodone-ACET 7.5/325MG TAB PO PRN (00:15)
[2022-03-28] MEDS ORDERED: PNEUMOCOCCAL VACC POLYS 25 MCG/0.5 ML VIAL IM ONE (04:45)
[2022-03-28] MEDS: LEVOTHYROXINE SODIUM 100 MCG TAB PO SCH (06:13)
[2022-03-28] MEDS: methylPREDNISolone SOD SUCC 40 MG/ML VL IV SCH ×3 (06:13→22:10)
[2022-03-28] MEDS ORDERED: DEXTROSE (50%) 50ML SYRG IV PRN (06:30)
[2022-03-28] MEDS ORDERED: ACCU-CHEK COMFORT CURVE STRIP VI SCH (07:00)
[2022-03-28] MEDS: InsuLIN REG 1unit/0.01ml Soln (100units/ml) SC SCH ×4 (07:18→21:52)
[2022-03-28] MEDS ORDERED: FAMOTIDINE (10MG/ML) 2ML VL IV SCH (10:00)
[2022-03-28 10:06] LABS: Basophils # (auto) 0 10 ^3/uL (0-0.2); Basophils % (auto) 0.5 % (0.0-2.0); Eosinophils # (auto) 0 10 ^3/uL (0-0.8); Eosinophils % (auto) 0.1 % (0.0-7.0); Hematocrit 39.7 % (36.0-46.0); Hemoglobin 13.2 g/dL (12.2-16.2); Lymphocytes # (auto) 0.6 10 ^3/uL (0.4-5.4); Lymphocytes % (auto) 9.7 % (10.0-50.0); Mean Corpuscular Hemoglobin 29.1 pg (28.0-32.0); Mean Corpuscular Hgb Conc. 33.4 g/dL (32.0-36.0); Mean Corpuscular Volume 87.1 fL (80.0-100.0); Monocytes # (auto) 0 10 ^3/uL (0-1.3); Monocytes % (auto) 0.3 % (0.0-12.0); Neutrophils # (auto) 5.3 10 ^3/uL (1.6-8.6); Neutrophils % (auto) 89.4 % (37.0-80.0); Nucleated Red Blood Cells % 0.1 %; Red Blood Cells 4.55 10^6/uL (4.0-5.20); White Blood Cell 5.9 10^3/uL (4.4-10.8)
[2022-03-28 10:12] LABS: Albumin 3.1 g/dL (3.4-5.0); Calcium 8.9 mg/dL (8.5-10.1); Magnesium 2.4 mg/dL (1.6-2.6); Potassium 4.1 mmol/L (3.5-5.1)
[2022-03-28 10:16] LABS: BUN/Creatinine Ratio 14.7; Bilirubin, Total 0.2 mg/dL (0.2-1.0); Total Protein 7.1 g/dL (6.4-8.2)
[2022-03-28] MEDS: ENOXAPARIN SOD 40 MG/0.4 ML SYRINGE SC SCH (10:16)
[2022-03-28] MEDS: PANTOPRAZOLE 40 MG TAB PO SCH (11:53)
[2022-03-28] MEDS: LORazepam 2MG/ML-1ML VIAL IV PRN ×2 (11:53→22:23)
[2022-03-28] MEDS: SODIUM CHLORIDE 0.9% 1,000 ML IV SCH ×2 (17:39)
[2022-03-28] MEDS ORDERED: INSULIN LANTUS (GLARGINE) 1 /0.01ml (100units/ml) SC SCH (22:00)
[2022-03-29 05:00] VITALS: BP 90/48
[2022-03-29] MEDS: methylPREDNISolone SOD SUCC 40 MG/ML VL IV SCH ×2 (06:22→14:00)
[2022-03-29] MEDS: LEVOTHYROXINE SODIUM 100 MCG TAB PO SCH (06:23)
[2022-03-29] MEDS: InsuLIN REG 1unit/0.01ml Soln (100units/ml) SC SCH ×2 (06:40→12:28)
[2022-03-29 08:54] VITALS: BP 126/70
[2022-03-29] MEDS: ENOXAPARIN SOD 40 MG/0.4 ML SYRINGE SC SCH (10:02)
[2022-03-29] MEDS: SODIUM CHLORIDE 0.9% 1,000 ML IV SCH (10:02)
[2022-03-29] MEDS: PANTOPRAZOLE 40 MG TAB PO SCH (10:02)
[2022-03-29] MEDS ORDERED: FAMO20TA10 PO (13:43)
[2022-03-29] MEDS ORDERED: INSLANTI SC (13:43)
[2022-03-29] MEDS ORDERED: PRED20TA2 PO (13:52)
[2022-03-29] MEDS ORDERED: ALBUAER3 IN (13:54)
[2022-03-29] MEDS ORDERED: INSU1MIS44 XX (14:01)
[2022-03-29 14:08] VITALS: BP 128/74
== END 2022-03-29 15:55 | disposition home or self-care (01) | DRG 141 ==
LOC: ER 12:06 → EDBD 12:06 → TELE 23:09 → TELE-WESTW 03-28 02:04
PROVIDERS: ADMIT Nurse Practitioner Family; ATTEND Family Medicine
PROC: 5A09357 Assistance with Respiratory Ventilation, Less than 24 Consecutive Hours, Continuous Positive Airway Pressure (ICD-10-PCS; principal; 2022-03-28)
PROC: 5A09357 Assistance with Respiratory Ventilation, Less than 24 Consecutive Hours, Continuous Positive Airway Pressure (ICD-10-PCS; 2022-03-29)
DX: J45.901 Unspecified asthma with (acute) exacerbation (principal); E03.9 Hypothyroidism, unspecified; Z20.822 Contact with and (suspected) exposure to COVID-19; E66.01 Morbid (severe) obesity due to excess calories; E78.5 Hyperlipidemia, unspecified; F41.1 Generalized anxiety disorder; G47.33 Obstructive sleep apnea (adult) (pediatric); I10 Essential (primary) hypertension; J98.11 Atelectasis; M94.0 Chondrocostal junction syndrome [Tietze]; R73.03 Prediabetes; Z68.35 Body mass index [BMI] 35.0-35.9, adult; Z79.890 Hormone replacement therapy; Z80.9 Family history of malignant neoplasm, unspecified; Z83.3 Family history of diabetes mellitus; R06.03 Acute respiratory distress
CPT/HCPCS: 36415; 71045; 76642; 76830; 76856; 80053; 81001; 82728; 82962; 83605; 83735; 83880; 84443; 84484; 85025; 85379; 86141; 87040; 93005; 94640; 94660; 96374; G0378; J1815; J3490

== ENCOUNTER 2022-12-07 16:28 | Emergency (ER) | payer MEDICAID ==
[~2022-12-07] VITALS: Ht 170.2 cm; Wt 109.8 kg
[~2022-12-07 16:28] MED LIST changes: +ALBUAER3 IN; +FAMO20TA10 PO; +INSLANTI SC; +INSU1MIS44 XX; +PRED20TA2 PO
[2022-12-07 18:04] LABS: Anion Gap 9 (5-15); Blood Urea Nitrogen 11 mg/dL (7-18); Calcium 9.3 mg/dL (8.5-10.1); Carbon Dioxide 27 mmol/L (21-32); Chloride 108 mmol/L (98-107); Glucose 91 mg/dL (74-106); Potassium 3.9 mmol/L (3.5-5.1); Sodium 144 mmol/L (136-145)
[2022-12-07 18:06] LABS: Alanine Aminotransferase 32 U/L (13-56); Albumin 3.8 g/dL (3.4-5.0); Aspartate Aminotransferase 16 U/L (15-37); BUN/Creatinine Ratio 12.1; Blood Alcohol < 3.0 mg/dL (0-5); GFR African American 83 mL/min; GFR Non-African American 68 mL/min
[2022-12-07 18:08] LABS: Salicylate < 1.7 mg/dL (2.8-20.0)
[2022-12-07 18:09] LABS: Alkaline Phosphatase 99 U/L (45-117); Bilirubin, Total 0.4 mg/dL (0.2-1.0); Total Protein 8.4 g/dL (6.4-8.2)
[2022-12-07 18:34] LABS: Urine Bacteria NONE SEEN /hpf (None Seen); Urine Blood Negative /uL (Negative); Urine Hyaline Cast FEW /lpf (0 - 2); Urine Mucus FEW (None Seen); Urine Specific Gravity 1.028 (1.001-1.035); Urine WBC 5 /hpf (0 - 5)
[2022-12-07 18:45] LABS: Acetaminophen < 2.0 ug/mL (10-30)
[2022-12-07 18:46] LABS: Alcohol, Urine < 3.0 mg/dL (0-10); Amphetamine Screen, Urine NEGATIVE (NEGATIVE); Barbiturate Scree,Urine NEGATIVE (NEGATIVE); Benzodiazephine Screen, Urine NEGATIVE (NEGATIVE); Cannabinoid Screen, Urine NEGATIVE (NEGATIVE); Cocaine Screen, Urine NEGATIVE (NEGATIVE); Opiate Scree,Urine NEGATIVE (NEGATIVE); Phencyclidine Screen, Urine NEGATIVE (NEGATIVE)
[2022-12-07 19:37] VITALS: BP 153/63
== END 2022-12-07 20:09 | disposition home or self-care (01) ==
LOC: ER 16:28
DX: R07.81 Pleurodynia (principal); R11.2 Nausea with vomiting, unspecified; I10 Essential (primary) hypertension; E78.5 Hyperlipidemia, unspecified; J45.909 Unspecified asthma, uncomplicated; E03.9 Hypothyroidism, unspecified; Z90.49 Acquired absence of other specified parts of digestive tract; Z79.4 Long term (current) use of insulin; Z79.899 Other long term (current) drug therapy; Z88.1 Allergy status to other antibiotic agents
CPT/HCPCS: 36415; 74176; 80053; 80307; 80320; 80329; 81001

== ENCOUNTER 2024-12-04 19:09 | Emergency (ER) | payer MEDICAID ==
[~2024-12-04] VITALS: Ht 170.2 cm; Wt 104.5 kg
--- NOTE | 2024-12-04 19:36 | ED.PDOC ---
HPI Comments 59 y.o female with PMHx of pulmonary fibrosis, HTN, hyperlipidemia, and asthma, presents to the ED for a chief complaint of substernal chest pain that started one week ago. Patient reports pain is constant, non radiating, and has no modifying factors. Patient was seen at Dr. [facility] clinic today and sent to the ED for cardiac evaluation. Patient mentions previous visits to Dr. Rod's clinic due to a productive cough, yellow sputum, and SOB she developed one month ago and was first placed on Amoxicillin and then Clindamycin but no relief. Patient finished last dose of antibiotics one week ago. SOB is worse on exertion, denies any fever, chills, nausea, vomiting, abdominal pain, back pain, leg swelling. Chief Complaint: Chest Pain Time Seen by MD: 19:11 Primary Care Provider: [place] Notes: Nurses Notes, Medications, Allergies Allergies: Coded Allergies: Ciprofloxacin (Verified Allergy, Unknown, 01/01/22) Home Meds Active Scripts Insulin Syringe/Needle U-100 (Bd Insulin Syringe Ultraf) 1 Ml/31 G Mis, ML XX HS PRN, #30 Prov:JV BAIG MD 03/29/22 Albuterol Sulfate (VENTOLIN MDI) 90 Mcg Ih, 90 MCG IN Q4HP PRN for 30 Days, #1 INH Prov:JV BAIG MD 03/29/22 Prednisone (Prednisone) 20 Mg Tab, 40 MG PO DAILY for 5 Days, #10 MG Prov:JV BAIG MD 03/29/22 Famotidine (PEPCID TABLET) 20 Mg Tb, 1 TAB PO BID, #60 TAB 5 Refills Prov:JV BAIG MD 03/29/22 Insulin Glargine (Lantus) 100 Unit/Ml Inj, 10 UNITS SC HS for 30 Days, #1 INJ Prov:JV BAIG MD 03/29/22 Reported Medications Hydrocodone-Acetaminophen ([place] 5/325MG) 1 Tab Tb, 1 TAB PO BID, #60 TAB 05/23/19 Information Source: Patient Mode of Arrival: Ambulatory Severity: Moderate Timing: Weeks (1) Duration: Since onset Location: Substernal Radiation: No Radiation Quality: Aching Onset: At Rest Cardiac Risk Factors: Hyperlipidemia, HTN PE Risk Factors: None History of: None Modifying Factors: Nothing Associated Signs and Symptoms: SOB Past Medical History PAST MEDICAL HISTORY: Asthma, High Lipids, HTN, Thyroid Surgical History: Appendectomy, 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, 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 History: Denies all 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 Hx Family History Family History: Family hx of DM, Family hx of Cancer Social History Smoker: Non-Smoker Alcohol: Denies ETOH Use Drugs: Denies Drug Use Lives In: Home Constitutional: denies: chills, diaphoresis, fatigue, fever, malaise, sweats, weakness, others EENTM: denies: blurred vision, double vision, ear bleeding, ear discharge, ear drainage, ear pain, ear ringing, eye pain, eye redness, hearing loss, mouth pain, mouth swelling, nasal discharge, nose bleeding, nose congestion, nose pain, photophobia, tearing, throat pain, throat swelling, voice changes, others Respiratory: reports: cough, SOB at rest, shortness of breath, SOB with excertion; denies: hemoptysis, orthopnea, stridor, wheezing, others Cardiovascular: reports: chest pain; denies: dizzy spells, diaphoresis, Dyspnea on exertion, edema, irregular heart beat, left arm pain, lightheadedness, palpitations, PND, syncope, others Gastrointestinal: denies: abdomen distended, abdominal pain, blood streaked bowels, constipated, diarrhea, dysphagia, difficulty swallowing, hematemesis, melena, nausea, poor appetite, poor fluid intake, rectal bleeding, rectal pain, vomiting, others Genitourinary: denies: abnormal vagina bleeding, burning, dyspareunia, dysuria, flank pain, frequency, hematuria, incontinence, pain, , vagina discharge, urgency, others Neurological: denies: dizziness, fainting, headache, left sided numbness, left sided weakness, numbness, paresthesia, pre-existing deficit, right sided numbne ss, right sided weakness, seizure, speech problems, tingling, tremors, weakness, others Musculoskeletal: denies: back pain, gout, joint pain, joint swelling, muscle pain, muscle stiffness, neck pain, others Integumetry: denies: bruises, change in color, change in hair/nails, dryness, laceration, lesions, lumps, rash, wounds, others Allergic/Immunocompromised: denies: Difficulty Healing, Frequent Infections, Hives, Itching, others Hematologic/Lymphatic: denies: anemia, blood clots, easy bleeding, easy bruising, swollen glands, others Endocrine: denies: excessive hunger, excessive sweating, excessive thirst, excessive urination, flushing, intolerance to cold, intolerance to heat, unexplained weight gain, unexplained weight loss, others Psychiatric: denies: anxiety, bipolar disorder, depression, hopeless, panic disorder, schizophrenia, sleepless, suicidal, others All Other Systems: Reviewed and Negative Physical Exam General Appearance: No Apparent Distress, Normal HEENT: Normal ENT Inspection, Pharynx Normal, TMs Normal Neck: Full Range of Motion, Non-Tender, Normal, Normal Inspection Respiratory: Wheezing (bilateral lower lung moore ), Other (diminished lung sounds on upper lung moore ) Cardiovascular: No Edema, No JVD, No Murmur, No Gallop, Normal Peripheral Pulses, Regular Rate/Rhythm Breast Exam: Deferred Gastrointestinal: No Organomegaly, Non Tender, No Pulsatile Mass, Normal Bowel Sounds, Soft Genitalia: Deferred Pelvic: Deferred Rectal: Deferred Extremities: No calf tenderness, Normal capillary refill, Normal inspection, Normal range of motion, Non-tender, No pedal edema Musculoskeletal : Apperance: Normal Neurologic: Alert, head of geography II-XII nml as Tested, No Motor Deficits, Normal Affect, Normal Mood, No Sensory Deficits Cerebellar Function: Normal Reflexes: Normal Skin: Dry, Normal Color, Warm Lymphatic: No Adenopathy Was a procedure done? Was a procedure done?: No CP Differential Dx Differential Diagnosis: N/A Differential Diagnosis: Angina, Chest Wall Pain, Costochondritis, Myocardial Infarction, Pericarditis X-Ray, Labs, Meds, VS Vital Signs Date Time Temp Pulse Resp B/P (MAP) Pulse Ox O2 Delivery O2 Flow Rate FiO2 12/04/24 19:16 104 12/04/24 19:15 98.1 104 22 113/70 (84) 94 Lab Test 12/04/24 21:28 12/04/24 19:20 Range/Units Troponin I High Sensitivity < 3 L < 3 L </=34 ng/L X-Ray, Labs, Meds, VS Comment Imaging: X-rays and CT scans were reviewed and interpreted by this provider, imaging shows no fractures and no pathological disease. Pending radiology review. Laboratory: Labs reviewed and interpreted by this provider. No significant abnormalities noted. Patient has prior medical visits reviewed. Med reconciliation performed Vital signs reviewed Time of 1ST Reevaluation: 19:30 Reevaluation 1ST: Unchanged Patient Education/Counseling: Diagnosis, Treatment, Prognosis, Need For Follow Up (Patient advised to follow-up in the emergency room in the next 24 to 48 hours if symptoms do not improve. Advised follow-up with PCP in the next 3 to 5 days. Patient verbalized understanding. ) Family Education/Counseling: No Family Present Departure 1 Departure Time of Disposition: 23:48 Impression: Primary Impression: Cough Qualified Codes: R05.1 - Acute cough Additional Impression: Asthma Qualified Codes: J45.42 - Moderate persistent asthma with status asthmaticus Disposition: HOME / SELF CARE / HOMELESS Condition: Fair e-Prescriptions Azithromycin (Zithromax Z-Zaire) 250 Mg Tab 250 MG PO DAILY for 5 Days, #6 TAB Prov: GREGORIO BRITT 12/04/24 Rcaspexivcd-Uwgsqzgdtaye-Ostoy (Trelegy Ellipta 100-62.5-25 Mcg/INH) 1 Aer Aer 1 AER IN DAILY for 30 Days, #1 AER Prov: GREGORIO BRITT 12/04/24 Prednisone (Prednisone) 20 Mg Tab 40 MG PO DAILY for 5 Days, #10 MG Prov: GREGORIO BRITT 12/04/24 Discharged With: Self Critical Care Note Critical Care Time?: No Stability Stability form required: No Heart Score Heart Score: Heart Score Response (Comments) Value History Slightly Suspicious 0 EKG Normal 0 Age 45-64 1 Risk Factors >3 or Hx ASHD 2 Troponin Normal limit 0 Total 3 I personally scribed for GREGORIO BRITT ([email or web address]) on 12/04/24 at 19:36. Electronically submitted by Nya Marin ([facility]). GREGORIO BRITT Dec 04, 2024 19:36
--- NOTE | 2024-12-04 19:53 | DVH ---
CHEST RADIOGRAPH Indication: sob Technique: Single frontal view of the chest was obtained COMPARISON: None FINDINGS: Lines and Tubes: None Lungs: Clear Pleura: No effusion. No pneumothorax. Cardiomediastinal contours: Unremarkable Bones: Unremarkable IMPRESSION: 1. No acute disease.
[2024-12-04 23:46] VITALS: BP 158/84; TEMP 98.1
[2024-12-04 23:48] VITALS: PULSE 17; RESP 32; O2SAT 95
[2024-12-04] MEDS ORDERED: AZITTAB PO (23:48)
[2024-12-04] MEDS ORDERED: PRED20TA2 PO (23:48)
[2024-12-04] MEDS: LEVALBUTEROL HCL 1.25 MG/3 ML NEB NEB STA (23:48)
[2024-12-04] MEDS ORDERED: FLUT1AER3 IN (23:48)
[2024-12-04 23:50] VITALS: RESP 18; O2SAT 97
--- NOTE | 2024-12-06 10:59 | ECG ---
[facility] Test Date: 2024-12-04 Test Time: 19:16:49 Pat Name: IMRELLA AREVALO Department: ED Room: Gender: F [employer] Supervisor: : [id number] Requested By: GREGORIO BRITT Order Number: [id number] Reading MD: Richard Jain Measurements Intervals Price Rate: 104 P: 81 NJ: 147 QRS: 17 QRSD: 76 T: 73 QT: 326 QTc: 429 Interpretive Statements Sinus tachycardia Ventricular premature complex Right atrial enlargement Minimal ST depression, anterolateral leads Electronically Signed On 12-07-2024 10:46:54 PST by Richard Jain Please click the below link to view image of tracing.
== END 2024-12-05 00:02 | disposition home or self-care (01) ==
LOC: ER 19:09
DX: R05.9 Cough, unspecified (principal); J45.909 Unspecified asthma, uncomplicated; E78.5 Hyperlipidemia, unspecified; I10 Essential (primary) hypertension; E03.9 Hypothyroidism, unspecified; Z88.6 Allergy status to analgesic agent; Z79.899 Other long term (current) drug therapy; Z90.49 Acquired absence of other specified parts of digestive tract; Z90.89 Acquired absence of other organs; Z98.890 Other specified postprocedural states
CPT/HCPCS: 36415; 71045; 84484; 93005; 94640

== ENCOUNTER 2025-03-22 15:38 | Inpatient (IN) | payer MEDICAID ==
[~2025-03-22] VITALS: Ht 167.6 cm; Wt 103.0 kg
[~2025-03-22 15:38] MED LIST changes: +AZITTAB PO; +FLUT1AER3 IN
--- NOTE | 2025-03-22 15:48 | ED.PDOC ---
History of Present Illness HPI Comments 60-year-old female brought in by EMS presents with a chief complaint of abdominal pain x 2 days with associated nausea and vomiting. Patient states that her pain is localized to her LLQ, radiates to her back, and rates her pain a 10/10. Patient denies any diarrhea, rectal bleeding, chest pain, SOB, or dizzin ess. No other symptoms or modifying factors present at this time. Time Seen by MD: 15:40 Primary Care Provider: [place] Reviewed Notes: Nurses Notes, Medications, Allergies Allergies: Coded Allergies: Ciprofloxacin (Verified Allergy, Unknown, 01/01/22) Home Meds Active Scripts Azithromycin (Zithromax Z-Zaire) 250 Mg Tab, 250 MG PO DAILY for 5 Days, #6 TAB Prov:GREGORIO BRITTP 12/04/24 Nhtndcbmiuq-Pzdjrudeecfl-Jzdjc (Trelegy Ellipta 100-62.5-25 Mcg/INH) 1 Aer Aer, 1 AER IN DAILY for 30 Days, #1 AER Prov:GREGORIO BRITT 12/04/24 Prednisone (Prednisone) 20 Mg Tab, 40 MG PO DAILY for 5 Days, #10 MG Prov:GREGORIO BRITTP 12/04/24 Insulin Syringe/Needle U-100 (Bd Insulin Syringe Ultraf) 1 Ml/31 G Mis, ML XX HS PRN, #30 Prov:JV BAIG MD 03/29/22 Albuterol Sulfate (VENTOLIN MDI) 90 Mcg Ih, 90 MCG IN Q4HP PRN for 30 Days, #1 INH Prov:JV BAIG MD 03/29/22 Prednisone (Prednisone) 20 Mg Tab, 40 MG PO DAILY for 5 Days, #10 MG Prov:JV BAIG MD 03/29/22 Famotidine (PEPCID TABLET) 20 Mg Tb, 1 TAB PO BID, #60 TAB 5 Refills Prov:JV BAIG MD 03/29/22 Insulin Glargine (Lantus) 100 Unit/Ml Inj, 10 UNITS SC HS for 30 Days, #1 INJ Prov:JV BAIG MD 03/29/22 Reported Medications Hydrocodone-Acetaminophen (Lane 5/325MG) 1 Tab Tb, 1 TAB PO BID, #60 TAB 05/23/19 Information Source: Patient, Emergency Med Personnel Mode of Arrival: EMS Severity: Moderate Timing: Days Duration: Since onset Prehospital treatment: [employer] Department Manager, Treatment (Zofran) Past Medical History PAST MEDICAL HISTORY: Asthma, High Lipids, HTN, Thyroid Surgical History: Appendectomy, 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, 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: Denies all 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 Hx Family History Family History: Family hx of DM, Family hx of Cancer Social History Smoker: Non-Smoker Alcohol: Denies ETOH Use Drugs: Denies Drug Use Lives In: Home Constitutional: denies: chills, diaphoresis, fatigue, fever, malaise, sweats, weakness, others EENTM: denies: blurred vision, double vision, ear bleeding, ear discharge, ear drainage, ear pain, ear ringing, eye pain, eye redness, hearing loss, mouth pain, mouth swelling, nasal discharge, nose bleeding, nose congestion, nose pain, photophobia, tearing, throat pain, throat swelling, voice changes, others Respiratory: denies: cough, hemoptysis, orthopnea, SOB at rest, shortness of breath, SOB with excertion, stridor, wheezing, others Cardiovascular: denies: chest pain, dizzy spells, diaphoresis, Dyspnea on exertion, edema, irregular heart beat, left arm pain, lightheadedness, palpitations, PND, syncope, others Gastrointestinal: reports: abdominal pain, nausea, vomiting; denies: abdomen distended, blood streaked bowels, constipated, diarrhea, dysphagia, difficulty swallowing, hematemesis, melena, poor appetite, poor fluid intake, rectal bleeding, rectal pain, others Genitourinary: denies: abnormal vagina bleeding, burning, dyspareunia, dysuria, flank pain, frequency, hematuria, incontinence, pain, , vagina discharge, urgency, others Neurological: denies: dizziness, fainting, headache, left sided numbness, left sided weakness, numbness, paresthesia, pre-existing deficit, right sided numbn ess, right sided weakness, seizure, speech problems, tingling, tremors, weakness, others Musculoskeletal: denies: back pain, gout, joint pain, joint swelling, muscle pain, muscle stiffness, neck pain, others Integumetry: denies: bruises, change in color, change in hair/nails, dryness, laceration, lesions, lumps, rash, wounds, others Allergic/Immunocompromised: denies: Difficulty Healing, Frequent Infections, Hives, Itching, others Hematologic/Lymphatic: denies: anemia, blood clots, easy bleeding, easy bruising, swollen glands, others Endocrine: denies: excessive hunger, excessive sweating, excessive thirst, excessive urination, flushing, intolerance to cold, intolerance to heat, unexplained weight gain, unexplained weight loss, others Psychiatric: denies: anxiety, bipolar disorder, depression, hopeless, panic disorder, schizophrenia, sleepless, suicidal, others All Other Systems: Reviewed and Negative Physical Exam General Appearance: Moderate Distress HEENT: Normal ENT Inspection, Pharynx Normal, TMs Normal Neck: Full Range of Motion, Non-Tender, Normal, Normal Inspection Respiratory: Chest Non-Tender, Lungs Clear, No Accessory Muscle Use, No Respiratory Distress, Normal Breath Sounds Cardiovascular: No Edema, No JVD, No Murmur, No Gallop, Normal Peripheral Pulses, Regular Rate/Rhythm Breast Exam: Deferred Gastrointestinal: LLQ, No Organomegaly, No Pulsatile Mass, Normal Bowel Sounds, Soft, Suprapubic, Tenderness Genitalia: Deferred Pelvic: Deferred Rectal: Deferred Extremities: No calf tenderness, Normal capillary refill, Normal inspection, Normal range of motion, Non-tender, No pedal edema Musculoskeletal : Apperance: Normal Neurologic: Alert, shoveler II-XII nml as Tested, No Motor Deficits, Normal Affect, Normal Mood, No Sensory Deficits Cerebellar Function: Normal Reflexes: Normal Skin: Dry, Normal Color, Warm Lymphatic: No Adenopathy Was a procedure done? Was a procedure done?: No Differential Dx Considerations may include: Diverticulitis, bowel obstruction, UTI, generalized weakness X-Ray, Labs, Meds, VS Vital Signs Date Time Temp Pulse Resp B/P (MAP) Pulse Ox O2 Delivery O2 Flow Rate FiO2 03/22/25 16:49 74 16 121/58 03/22/25 16:27 89 16 108/50 03/22/25 16:25 97.0 87 16 108/50 (69) 95 97.0 03/22/25 16:18 98.3 101 18 157/96 (116) 95 98.3 Lab Test 03/22/25 15:55 Range/Units White Blood Count 8.5 4.4-10.8 10^3/uL Red Blood Count 5.23 H 4.0-5.20 10^6/uL Hemoglobin 15.3 12.2-16.2 g/dL Hematocrit 45.6 36.0-46.0 % Mean Corpuscular Volume 87.1 80.0-100.0 fL Mean Corpuscular Hemoglobin 29.3 28.0-32.0 pg Mean Corpuscular Hemoglobin Concent 33.7 32.0-36.0 g/dL Red Cell Distribution Width 14.2 11.8-14.3 % Platelet Count 241 140-450 10^3/uL Mean Platelet Volume 9.4 6.9-10.8 fL Neutrophils (%) (Auto) 67.6 37.0-80.0 % Lymphocytes (%) (Auto) 21.7 10.0-50.0 % Monocytes (%) (Auto) 8.1 0.0-12.0 % Eosinophils (%) (Auto) 1.5 0.0-7.0 % Basophils (%) (Auto) 1.1 0.0-2.0 % Neutrophils # (Auto) 5.7 1.6-8.6 10 ^3/uL Lymphocytes # (Auto) 1.8 0.4-5.4 10 ^3/uL Monocytes # (Auto) 0.7 0-1.3 10 ^3/uL Eosinophils # (Auto) 0.1 0-0.8 10 ^3/uL Basophils # (Auto) 0.1 0-0.2 10 ^3/uL Nucleated Red Blood Cells 0.1 % Sodium Level 144 136-145 mmol/L Potassium Level 3.8 3.5-5.1 mmol/L Chloride Level 111 H 98-107 mmol/L Carbon Dioxide Level 23 20-31 mmol/L Anion Gap 10 5-15 Blood Urea Nitrogen 10 9-23 mg/dL Creatinine 0.82 0.550-1.02 mg/dL Glomerular Filtration Rate Calc 83 >90 mL/min BUN/Creatinine Ratio 12.2 10.0-20.0 Serum Glucose 93 74-106 mg/dL Calcium Level 10.0 8.7-10.4 mg/dL Total Bilirubin 0.6 0.2-1.0 mg/dL Aspartate Amino Transferase (AST) 18 13-40 U/L Alanine Aminotransferase (ALT) 28 7-40 U/L Alkaline Phosphatase 72 46-116 U/L Total Protein 7.2 5.7-8.2 g/dL Albumin 4.7 3.2-4.8 g/dL Lipase 32 12-53 U/L Current Medications Medications (Trade) Dose Ordered Sig/Deven Route Start Time Stop Time Status Last Admin Ondansetron HCl (Zofran) 4 mg ONCE ONCE IV 03/22/25 15:45 03/22/25 15:46 DC 03/22/25 16:27 Morphine Sulfate 4 mg ONCE ONCE IV 03/22/25 15:45 03/22/25 15:46 DC 03/22/25 16:27 Sodium Chloride 500 ml @ 500 mls/hr Q1H ONCE IVB 03/22/25 15:45 03/22/25 16:44 DC 03/22/25 16:22 IV Hep-Lock was established The CAT scan of the abdomen and pelvis shows: IMPRESSION: 1. No CT findings of bowel obstruction 2. Gallbladder has been surgically removed. 3. No nephrolithiasis or hydronephrosis The patient's CBC is within normal limits The chemistry panel is within normal limits For the pain the patient was given morphine 4 mg IV push The patient was given Zofran 4 mg IV push for the nausea The patient was given normal saline at a 500 cc bolus At this time, the patient is being admitted Images Reviewed?: Images reviewed and evaluated by me Time of 1ST Reevaluation: 16:10 Reevaluation 1ST: Unchanged Patient Education/Counseling: Diagnosis, Treatment, Prognosis Family Education/Counseling: No Family Present Departure 1 Departure Time of Disposition: 17:40 Impression: Primary Impression: Intractable abdominal pain Disposition: 09 ADMITTED INPATIENT Admit to: Med Surg Condition: Fair Critical Care Note Critical Care Time?: No Stability Stability form required: Yes Unstable for transfer: ED Physician Assesment (Clinical assesment) Heart Score Heart Score: Heart Score Response (Comments) Value History N/A 0 EKG N/A 0 Age N/A 0 Risk Factors N/A 0 Troponin N/A 0 Total 0 I personally scribed for LISA CHO MD ([email or web address]) on 03/22/25 at 15:48. Electronically submitted by Braulio Bradley ([email or web address]). LISA CHO MD March 22, 2025 15:48
[2025-03-22 16:10] LABS: Basophils # (auto) 0.1 10 ^3/uL (0-0.2); Basophils % (auto) 1.1 % (0.0-2.0); Eosinophils # (auto) 0.1 10 ^3/uL (0-0.8); Eosinophils % (auto) 1.5 % (0.0-7.0); Hematocrit 45.6 % (36.0-46.0); Hemoglobin 15.3 g/dL (12.2-16.2); Lymphocytes # (auto) 1.8 10 ^3/uL (0.4-5.4); Lymphocytes % (auto) 21.7 % (10.0-50.0); Mean Corpuscular Hemoglobin 29.3 pg (28.0-32.0); Mean Corpuscular Hgb Conc. 33.7 g/dL (32.0-36.0); Mean Corpuscular Volume 87.1 fL (80.0-100.0); Monocytes # (auto) 0.7 10 ^3/uL (0-1.3); Monocytes % (auto) 8.1 % (0.0-12.0); Neutrophils # (auto) 5.7 10 ^3/uL (1.6-8.6); Neutrophils % (auto) 67.6 % (37.0-80.0); Nucleated Red Blood Cells % 0.1 %; Platelet Count (auto) 241 10^3/uL (140-450); Red Blood Cells 5.23 10^6/uL (4.0-5.20); Red Cell Distribution Width 14.2 % (11.8-14.3); White Blood Cell 8.5 10^3/uL (4.4-10.8)
[2025-03-22] MEDS: SODIUM CHLORIDE 0.9% 500 ML IVB ONE (16:22)
[2025-03-22 16:27] LABS: Alanine Aminotransferase 28 U/L (7-40); Albumin 4.7 g/dL (3.2-4.8); Alkaline Phosphatase 72 U/L (46-116); Anion Gap 10 (5-15); Aspartate Aminotransferase 18 U/L (13-40); BUN/Creatinine Ratio 12.2 (10.0-20.0); Bilirubin, Total 0.6 mg/dL (0.2-1.0); Blood Urea Nitrogen 10 mg/dL (9-23); Carbon Dioxide 23 mmol/L (20-31); Glucose 93 mg/dL (74-106); Potassium 3.8 mmol/L (3.5-5.1); Sodium 144 mmol/L (136-145); Total Protein 7.2 g/dL (5.7-8.2)
[2025-03-22] MEDS: MORPHINE SULFATE 4 MG/ML SYR/VIAL IV ONE ×2 (16:27→22:06)
[2025-03-22] MEDS: ONDANSETRON HCL 4 MG/2 ML VIAL IV ONE ×2 (16:27→22:06)
[2025-03-22 16:28] LABS: Chloride 111 mmol/L (98-107)
[2025-03-22 16:44] LABS: Lipase 32 U/L (12-53)
--- NOTE | 2025-03-22 17:17 | DVH ---
Exam: CT CT AB PEL WO CON-NO ORAL OR IV History: pain Comparison Study: CT ABD PELVIS WO CONTRAST on DOS: 12/07/22 TECHNIQUE: Multidetector CT of the abdomen was performed from lung bases to pubic symphysis. Imaging was performed without IV contrast. Axial, coronal and sagittal multiplanar reformats were obtained fr om the axial data set by the technologist. Radiation Dose Information: CT Dose: CTDI volume is 17.98 mGy. Dose-length product is 946.45 mGy*cm FINDINGS: Evaluation of solid organs is limited due to lack of intravenous contrast use. Findings: Lung Bases: No acute or significant lung base finding. Normal heart size. No pleural or pericardial effusion. Liver: The liver is normal in size. No focal lesions. Gallbladder and Biliary Tree: gallbladder has been surgically removed. able Spleen: Unremarkable Pancreas: The pancreas is grossly normal in appearance. Adrenal Glands: Unremarkable Kidneys: Kidneys are grossly normal without calculi or hydronephrosis. Bladder: Grossly unremarkable for degree of distention. Bowel: The stomach is grossly normal in appearance. Small bowel and colon are normal in caliber and d istribution. The appendix is not visualized; however, no secondary findings of acute appendicitis id entified. Ascites: Absent Lymphadenopathy: No mesenteric, retroperitoneal or periportal lymphadenopathy. Abdominal Wall and Mesentery: Unremarkable. Vasculature: The visualized abdominal aorta is normal in size and caliber. Evaluation of abdominal a nd pelvic vessels is limited due to lack of intravenous contrast. Pelvic Organs: Unremarkable Musculoskeletal: No aggressive focal bony lesions, acute fractures or dislocation. Soft tissues: Unremarkable IMPRESSION: 1. No CT findings of bowel obstruction 2. Gallbladder has been surgically removed. 3. No nephrolithiasis or hydronephrosis . Radiation optimization: All CT scans at this facility use at least one of these dose optimization nnamdi hniques: automated exposure control mA and/or kV adjustment per patient size (includes targeted exam s where dose is matched to clinical indication) or iterative reconstruction.
[2025-03-22] MEDS ORDERED: ACETAMINOPHEN 325 MG TAB PO PRN (22:30)
[2025-03-22] MEDS ORDERED: DEXTROSE (50%) 50ML SYRG IV PRN (22:45)
[2025-03-22] MEDS: KETOROLAC TROMETH 30 MG/ML 1ML VIAL IV PRN (23:49)
[2025-03-23] VITALS (9 sets, daily range): BP systolic 94–134; BP diastolic 42–93; PULSE 58–68; RESP 17–20; TEMP 97.4–97.7; O2SAT 0–96
[2025-03-23] MEDS ORDERED: TIRZ7.5I SC (03:32)
[2025-03-23] MEDS ORDERED: HYDR-4069 PO (03:32)
[2025-03-23] MEDS: MAGNESIUM CITRATE SOLUTION 300 ML BTL PO ONE (03:32)
[2025-03-23] MEDS: BISACODYL 5 MG EC TAB PO ONE (03:33)
--- NOTE | 2025-03-23 05:14 | DVHHP2 ---
History of Present Illness Reason for Visit: acute intractable abdominal pain History of Present Illness 60-year-old female with history of asthma, hypothyroidism, hyperlipidemia, and spinal stenosis presents to the ED with complaints of abdominal pain and bilateral leg weakness. She reports that for the past three days, she has been unable to move properly and has been experiencing worsening weakness in both legs over the past two weeks. She denies any falls, trauma, nausea, vomiting, or urinary complaints. Pain is described as severe, rated 10/10, and localized to the left lower quadrant, radiating to the back. She also reports significant constipation. She has a known history of spinal stenosis for which she was being followed by pain management and previously received epidural injections. She was on [place] in the past but states she is no longer taking opioids. Patient also stated pain in her tail bone PAST MEDICAL HISTORY: Asthma Hypothyroidism? Hyperlipidemia Hypertension Cervical Spinal stenosis Surgical: Appendectomy, 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, Section SOCIAL HISTORY: Tobacco: Non-smoker Alcohol: Denies use Drugs: Denies recreational drug use Review of Systems Constitutional: No: Fever, Chills, Sweats, Weakness, Malaise, Other Eyes: No: Pain, Vision change, Conjunctivae inflammation, Eyelid inflammation, Other, Redness ENT: No: Ear pain, Ear discharge, Nose pain, Nose discharge, Nose congestion, Mouth pain, Mouth swelling, Throat pain, Throat swelling, Other Respiratory: No: Cough, Dry, Shortness of breath, SOB with excertion, Wheezing, Hemoptysis, Pleuritic Pain, Sputum, Wheezing, Other Cardiovascular: No: Chest Pain, Palpitations, Orthopnea, Paroxysmal Noc. Dyspnea, Edema, Lt Headedness, Other Gastrointestinal: Abdominal Pain; No: Nausea, Vomiting, Diarrhea, Constipation, Melena, Hematochezia, Other Genitourinary: No Dysuria, No Frequency, No Incontinence, No Hematuria, No Retention, No Other Musculoskeletal: No: other, neck pain, shoulder pain, arm pain, back pain, hand pain, leg pain, foot pain Skin: No: Rash, Lesions, Jaundice, Bruising, Other Neurological: Weakness; No: Numbness, Incoordination, Change in speech, Confusion, Seizures, Other Allergies: Coded Allergies: Ciprofloxacin (Verified Allergy, Unknown, 01/01/22) Medications Current Medications Medications Dose Ordered Sig/[facility] Route Start Time Stop Time Status Last Admin Dose Admin Enoxaparin Sodium 40 mg DAILY SC 03/23/25 10:00 Acetaminophen 650 mg Q4HP PRN PO 03/22/25 22:30 Ketorolac Tromethamine 30 mg Q6HPRN PRN IV 03/22/25 22:30 03/27/25 22:29 03/22/25 23:49 30 MG Exam Vital Signs Vital Signs Date Time Temp Pulse Resp B/P (MAP) Pulse Ox O2 Delivery O2 Flow Rate FiO2 03/23/25 03:24 68 18 96 Room Air* 0 21 03/23/25 01:28 98.6 123/64 (83) 98.6 General Appearance: Alert, Oriented X3 HEENT: Atraumatic, PERRLA Respiratory: Clear to auscultation Cardiovascular: Regular rate, Normal S1 Abdominal: Other (generalized tenderness ) Extremities: No edema Skin: No rashes Neuro: Other (weakness and unable to stand due to leg weakness ) Psych/Mental Status: Mental status NL, Mood NL Labs/Xrays Labs Test 03/23/25 02:56 03/22/25 15:55 Range/Units POC Glucose 85 70-106 mg/dl White Blood Count 8.5 4.4-10.8 10^3/uL Red Blood Count 5.23 H 4.0-5.20 10^6/uL Hemoglobin 15.3 12.2-16.2 g/dL Hematocrit 45.6 36.0-46.0 % Mean Corpuscular Volume 87.1 80.0-100.0 fL Mean Corpuscular Hemoglobin 29.3 28.0-32.0 pg Mean Corpuscular Hemoglobin Concent 33.7 32.0-36.0 g/dL Red Cell Distribution Width 14.2 11.8-14.3 % Platelet Count 241 140-450 10^3/uL Mean Platelet Volume 9.4 6.9-10.8 fL Neutrophils (%) (Auto) 67.6 37.0-80.0 % Lymphocytes (%) (Auto) 21.7 10.0-50.0 % Monocytes (%) (Auto) 8.1 0.0-12.0 % Eosinophils (%) (Auto) 1.5 0.0-7.0 % Basophils (%) (Auto) 1.1 0.0-2.0 % Neutrophils # (Auto) 5.7 1.6-8.6 10 ^3/uL Lymphocytes # (Auto) 1.8 0.4-5.4 10 ^3/uL Monocytes # (Auto) 0.7 0-1.3 10 ^3/uL Eosinophils # (Auto) 0.1 0-0.8 10 ^3/uL Basophils # (Auto) 0.1 0-0.2 10 ^3/uL Nucleated Red Blood Cells 0.1 % Sodium Level 144 136-145 mmol/L Potassium Level 3.8 3.5-5.1 mmol/L Chloride Level 111 H 98-107 mmol/L Carbon Dioxide Level 23 20-31 mmol/L Anion Gap 10 5-15 Blood Urea Nitrogen 10 9-23 mg/dL Creatinine 0.82 0.550-1.02 mg/dL Glomerular Filtration Rate Calc 83 >90 mL/min BUN/Creatinine Ratio 12.2 10.0-20.0 Serum Glucose 93 74-106 mg/dL Hemoglobin A1c 5.2 <5.7 % A1C Calcium Level 10.0 8.7-10.4 mg/dL Total Bilirubin 0.6 0.2-1.0 mg/dL Aspartate Amino Transferase (AST) 18 13-40 U/L Alanine Aminotransferase (ALT) 28 7-40 U/L Alkaline Phosphatase 72 46-116 U/L Total Protein 7.2 5.7-8.2 g/dL Albumin 4.7 3.2-4.8 g/dL Lipase 32 12-53 U/L Thyroid Stimulating Hormone (TSH) 4.06 0.55-4.78 uIU/mL Assessment/Plan Assessment/Plan #Acute intractable abdominal pain #Constipation #Bilateral leg weakness #H/o of Severe cervical spondylosis/degenerative enthesopathy from C4-C5 through C6-C7 #H/o asthma #H/o hyperlipidemia #hypertension #hypothyroidism? Abdominal CT: large amount of stool Admit Med/surg Hold on opioids due to severe constipation Magnesium citrate and bisacodyl Tylenol and Toradol for pain Lactulose PRN Case discussed with Dr Sandhu Full code Plan discussed with: Patient, Other (rn) My Orders Orders - HUSEYIN SERRATO Procedure Category Date Status Time Admit ADMIT 03/22/25 Transmitted 22:13 Code Status CODE 03/22/25 Transmitted 22:13 Vital Signs REGINA 03/22/25 In Process 22:13 Review Orders With REGINA 03/22/25 In Process Adm. 22:13 Notify Md Of Changes REGINA 03/22/25 In Process From Base 22:13 Advance Directive REGINA 03/22/25 In Process 22:13 Patient Condition ORDERS 03/22/25 Transmitted 22:13 Allergies REGINA 03/22/25 In Process 22:13 Drug Screen LAB 03/22/25 Logged 22:17 Enoxaparin Sodium PHA 03/23/25 In Process (Lovenox) 10:00 Acetaminophen Tablet PHA 03/22/25 In Process (Tylenol Tablet) 22:30 Ketorolac Injection PHA 03/22/25 In Process (Toradol Injection) 22:30 Consistent DIET 03/23/25 Transmitted Carb(Ccho)Diabetes Breakfast Complete Blood Count LAB 03/23/25 Logged 04:25 Comprehensive LAB 03/23/25 Logged Metabolic Panel 04:25 Date of Service: March 22, 2025 Billing Provider: MARIA C SANDHU MD Common Visit Codes: [id number] INP/OBS CARE (HIGH) Secondary Visit Codes: [id number] CARE PLAN 30 MINUTES HUSEYIN SERRATO RESIDENT March 23, 2025 05:14
[2025-03-23] MEDS: LACTULOSE 20Gm/30ML SOLN PO SCH (06:17)
[2025-03-23] MEDS ORDERED: InsuLIN REG 1unit/0.01ml Soln (100units/ml) SC SCH (07:00)
[2025-03-23] MEDS ORDERED: ACCU-CHEK COMFORT CURVE STRIP VI SCH (07:00)
[2025-03-23] MEDS: ENOXAPARIN SOD 40 MG/0.4 ML SYRINGE SC SCH (08:58)
[2025-03-23 11:28] LABS: Basophils # (auto) 0 10 ^3/uL (0-0.2); Basophils % (auto) 0.6 % (0.0-2.0); Eosinophils # (auto) 0.1 10 ^3/uL (0-0.8); Eosinophils % (auto) 2.1 % (0.0-7.0); Hematocrit 43.2 % (36.0-46.0); Hemoglobin 14.1 g/dL (12.2-16.2); Lymphocytes # (auto) 1.7 10 ^3/uL (0.4-5.4); Lymphocytes % (auto) 27.8 % (10.0-50.0); Mean Corpuscular Hemoglobin 29.1 pg (28.0-32.0); Mean Corpuscular Hgb Conc. 32.7 g/dL (32.0-36.0); Mean Corpuscular Volume 88.9 fL (80.0-100.0); Monocytes # (auto) 0.7 10 ^3/uL (0-1.3); Neutrophils # (auto) 3.5 10 ^3/uL (1.6-8.6); Neutrophils % (auto) 58.5 % (37.0-80.0); Nucleated Red Blood Cells % 0.1 %; Platelet Count (auto) 197 10^3/uL (140-450); Red Blood Cells 4.86 10^6/uL (4.0-5.20); Red Cell Distribution Width 14.3 % (11.8-14.3)
--- NOTE | 2025-03-23 11:35 | DVHPNRES ---
Progress Note Date Seen: March 23, 2025 Resident Creating Document: BURT ROLLINS RESIDENT Has the PT tested + for MRSA If YES, has PT been informed?: No Medical Necessity Reason Pt with a Central, PICC or Fol: No Medical Necessity Reason History of Present Illness 60-year-old female with history of asthma, hypothyroidism, hyperlipidemia, and spinal stenosis presents to the ED with complaints of abdominal pain and bilateral leg weakness. She reports that for the past three days, she has been unable to move properly and has been experiencing worsening weakness in both legs over the past two weeks. She denies any falls, trauma, nausea, vomiting, or urinary complaints. Pain is described as severe, rated 10/10, and localized to the left lower quadrant, radiating to the back. She also reports significant constipation. She has a known history of spinal stenosis for which she was being followed by pain management and previously received epidural injections. She was on [place] in the past but states she is no longer taking opioids. Patient also stated pain in her tail bone PAST MEDICAL HISTORY: Asthma,Hypothyroidism? ,Hyperlipidemia, Hypertension, Cervical Spinal stenosis Surgical history : Appendectomy, 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, Section SOCIAL HISTORY:Tobacco: Non-smoker,Alcohol: Denies use Drugs: Denies recreational drug use Family History: Noncontributory PN 03/23/2025 Patient is a 60-year-old female with a past medical history of asthma, hypothyroidism, cervical spine stenosis, presented to the ED because of inability to have a bowel movement for the past 2.5-3 weeks. According to the patient, she is currently on [place] for her diabetes and also for weight loss and she has reduced her lunch intake to just crackers and cheese and does not eat dinner most of the time. She has noticed that over the past 2.5-3 weeks she has been unable to have a regular bowel movement despite using her Patient has tried MiraLax, dulculax (bisacodyl). Thus, she came to the ED for evaluation. Also,patient mentioned that she has a history of coccygeal fracture. Initial vitals are grossly unremarkable. CT abdomen did not show any CT findings of bowel obstruction. Subjective Review of Systems Constitutional: Denies fever no chills no feeling of malaise HEENT: Denies headache, ear pain, ear discharges, conjunctivitis, nasal discharge throat pain Cardiovascular: Denies chest pain, palpitation, orthopnea, PND, or pedal edema Respiratory: Denies shortness of breath, cough cough, sputum production, hemoptysis, GI: Denies abdominal pain, nausea, vomiting, diarrhea, hematemesis, hematochezia, : Denies frequency, urgency, hematuria, Endocrine: Denies unintentional weight gain or weight loss, feeling of hot flashes, Philip: Denies easy bruising, bleeding disorders, epistaxis Musculoskeletal: Denies joint pains, muscle aches Psych: No evidence of depression, phyllis, suicidal ideation Objective vital signs Vital Sign Date Time Temp Pulse Resp B/P (MAP) Pulse Ox O2 Delivery O2 Flow Rate FiO2 03/23/25 09:00 97.7 61 17 94/50 (65) 93 97.7 03/23/25 08:00 Room Air* 0 21 Total Intake and Output 03/22/25 03/22/25 03/23/25 15:00 23:00 07:00 Intake Total 500 ml 0 ml Balance 500 ml 0 ml medications Current Medications Medications Dose Ordered Sig/Deven Route Start Time Stop Time Status Last Admin Dose Admin Enoxaparin Sodium 40 mg DAILY SC 03/23/25 10:00 03/23/25 08:58 40 MG Acetaminophen 650 mg Q4HP PRN PO 03/22/25 22:30 Ketorolac Tromethamine 30 mg Q6HPRN PRN IV 03/22/25 22:30 03/27/25 22:29 03/23/25 10:48 30 MG Lactulose 30 ml Q6HR PO 03/23/25 06:00 03/23/25 06:17 30 ML Examination General Appearance: Alert, Oriented X3, Cooperative, No acute distress HEENT: Atraumatic, PERRLA, EOMI, Mucous membrane moist/pink Respiratory: Clear to auscultation, Normal air movement Cardiovascular: Regular rate, Normal S1, Normal S2, No murmurs, no chest wall tenderness Abdominal: NO distention, no tenderness, bowel sounds present, no scars noted Extremities: No clubbing, No cyanosis, No edema, Normal pulses, No tenderness/swelling Skin: No rashes, No breakdown, No significant lesion Neuro: Normal gait, Normal speech, Strength at 5/5 X4 ext, Normal tone, Sensation intact, Cranial nerves 3-12 NL, Reflexes 2+ Psych/Mental Status: Mental status NL, Mood NL Sacrum Tenderness the sacral region. Not weakness in the lower limbs urinary all stool incontinence laboratory and microbiology Laboratory Tests 03/22/25 15:55 Test 03/22/25 15:55 Range/Units Serum Glucose 93 74-106 mg/dL Problem List/Assessment/Plan Problem List/Assessment/Plan Assessment #Acute intractable abdominal pain #Constipation, Abdominal CT: large amount of stool #Bilateral leg weakness #H/o of Severe cervical spondylosis/degenerative enthesopathy from C4-C5 through C6-C7 #H/o asthma #H/o hyperlipidemia #hypertension #hypothyroidism? #Obestity grade 2, BMI 36.7 plan Hold on opioids due to severe constipation Magnesium citrate and bisacodyl Tylenol and Toradol for pain Lactulose PRN Discussed for more than 20 minutes: Full code Case and plan discussed with Dr. Figueroa Plan discussed with: Patient Date of Service: March 23, 2025 Billing Provider: ALEX FIGUEROA MD Common Visit Codes: [id number] INP/OBS CARE(HIGH) BURT ROLLINS RESIDENT March 23, 2025 11:35 ALEX FIGUEROA MD March 23, 2025 18:28
[2025-03-23 11:44] LABS: Alanine Aminotransferase 24 U/L (7-40); Alkaline Phosphatase 61 U/L (46-116); Anion Gap 8 (5-15); Aspartate Aminotransferase 17 U/L (13-40); BUN/Creatinine Ratio 13.9 (10.0-20.0); Blood Urea Nitrogen 14 mg/dL (9-23); Calcium 9.2 mg/dL (8.7-10.4); Carbon Dioxide 26 mmol/L (20-31); Chloride 107 mmol/L (98-107); Glucose 78 mg/dL (74-106); Potassium 3.7 mmol/L (3.5-5.1); Sodium 141 mmol/L (136-145); Total Protein 6.3 g/dL (5.7-8.2)
[2025-03-23 11:45] LABS: Bilirubin, Total 0.5 mg/dL (0.2-1.0)
[2025-03-23 18:20] LABS: Urine Bacteria None Seen /hpf (None Seen)
[2025-03-23 18:33] LABS: Urine Blood Negative /uL (Negative); Urine Clarity Clear (Clear); Urine Color Yellow (Yellow); Urine Mucus FEW (None Seen); Urine Protein, UAD TRACE (Negative); Urine Specific Gravity 1.039 (1.001-1.035); Urine Squamous Epithelial Cell FEW /hpf (<5); Urine Urobilinogen Normal (Negative); Urine WBC 2 /HPF (0-5); Urine pH 5.5 (5.0-9.0)
[2025-03-23 18:37] LABS: Opiate Scree,Urine Pos (NEGATIVE)
[2025-03-23 18:59] LABS: Amphetamine Screen, Urine Neg (NEGATIVE); Barbiturate Scree,Urine Neg (NEGATIVE); Benzodiazephine Screen, Urine Neg (NEGATIVE); Cannabinoid Screen, Urine Neg (NEGATIVE); Cocaine Screen, Urine Neg (NEGATIVE); Phencyclidine Screen, Urine Neg (NEGATIVE)
[2025-03-24 01:00] VITALS: BP_SYST 117; BP_SYST 135; BP_DIAS 56; PULSE 56; PULSE 57; RESP 18; RESP 20; TEMP 97.7; TEMP 97.8; O2SAT 93; O2SAT 98
[2025-03-24 05:00] VITALS: BP 102/53; PULSE 66; RESP 20; TEMP 97.9; O2SAT 97
[2025-03-24 08:37] VITALS: BP 108/59; PULSE 74; RESP 17; TEMP 97.9; O2SAT 96
[2025-03-24 12:56] VITALS: BP 103/54; PULSE 51; RESP 17; TEMP 97.6; O2SAT 95
[2025-03-24 16:41] VITALS: BP 113/64; PULSE 58; RESP 18; TEMP 97.9; O2SAT 95
--- NOTE | 2025-03-24 17:44 | DVHDS2 ---
Discharge Summary Date of Admission March 22, 2025 at 22:13 Date of Discharge: March 24, 2025 Labs/Diagnostic Data: Laboratory Results Test 03/23/25 17:45 03/23/25 11:00 03/23/25 02:56 03/22/25 15:55 Urine Color Yellow (Yellow) Urine Clarity Clear (Clear) Urine pH 5.5 (5.0-9.0) Urine Specific [place] 1.039 (1.001-1.035) Urine Protein Trace (Negative) Urine Ketones Trace (Negative) Urine Blood Negative /uL (Negative) Urine Nitrite Negative (Negative) Urine Bilirubin Negative (Negative) Urine Urobilinogen Normal mg/dL (Negative) Urine Leukocyte Esterase Negative /uL (Negative) Urine RBC 1 /hpf (0 - 4) Urine Microscopic WBC 2 /HPF (0-5) Urine Squamous Epithelial Cells Few /hpf (<5) Urine Bacteria None seen /hpf (None Seen) Urine Mucus Few (None Seen) Urine Glucose Normal mg/dL (Normal) Urine Opiates Screen Pos (NEGATIVE) Urine Fentanyl Screen Neg (NEGATIVE) Urine Barbiturates Screen Neg (NEGATIVE) Urine Phencyclidine Screen Neg (NEGATIVE) Urine Amphetamines Screen Neg (NEGATIVE) Urine Benzodiazepines Screen Neg (NEGATIVE) Urine Cocaine Screen Neg (NEGATIVE) Urine Cannabinoids Screen Neg (NEGATIVE) White Blood Count 6.0 10^3/uL (4.4-10.8) Red Blood Count 4.86 10^6/uL (4.0-5.20) Hemoglobin 14.1 g/dL (12.2-16.2) Hematocrit 43.2 % (36.0-46.0) Mean Corpuscular Volume 88.9 fL (80.0-100.0) Mean Corpuscular Hemoglobin 29.1 pg (28.0-32.0) Mean Corpuscular Hemoglobin Concent 32.7 g/dL (32.0-36.0) Red Cell Distribution Width 14.3 % (11.8-14.3) Platelet Count 197 10^3/uL (140-450) Mean Platelet Volume 9.1 fL (6.9-10.8) Neutrophils (%) (Auto) 58.5 % (37.0-80.0) Lymphocytes (%) (Auto) 27.8 % (10.0-50.0) Monocytes (%) (Auto) 11.0 % (0.0-12.0) Eosinophils (%) (Auto) 2.1 % (0.0-7.0) Basophils (%) (Auto) 0.6 % (0.0-2.0) Neutrophils # (Auto) 3.5 10 ^3/uL (1.6-8.6) Lymphocytes # (Auto) 1.7 10 ^3/uL (0.4-5.4) Monocytes # (Auto) 0.7 10 ^3/uL (0-1.3) Eosinophils # (Auto) 0.1 10 ^3/uL (0-0.8) Basophils # (Auto) 0 10 ^3/uL (0-0.2) Nucleated Red Blood Cells 0.1 % Sodium Level 141 mmol/L (136-145) Potassium Level 3.7 mmol/L (3.5-5.1) Chloride Level 107 mmol/L (98-107) Carbon Dioxide Level 26 mmol/L (20-31) Anion Gap 8 (5-15) Blood Urea Nitrogen 14 mg/dL (9-23) Creatinine 1.01 mg/dL (0.550-1.02) Glomerular Filtration Rate Calc 65 mL/min (>90) BUN/Creatinine Ratio 13.9 (10.0-20.0) Serum Glucose 78 mg/dL (74-106) Calcium Level 9.2 mg/dL (8.7-10.4) Total Bilirubin 0.5 mg/dL (0.2-1.0) Aspartate Amino Transferase (AST) 17 U/L (13-40) Alanine Aminotransferase (ALT) 24 U/L (7-40) Alkaline Phosphatase 61 U/L (46-116) Total Protein 6.3 g/dL (5.7-8.2) Albumin 4.0 g/dL (3.2-4.8) POC Glucose 85 mg/dl (70-106) Hemoglobin A1c 5.2 % A1C (<5.7) Lipase 32 U/L (12-53) Thyroid Stimulating Hormone (TSH) 4.06 uIU/mL (0.55-4.78) Other Laboratory Tests 03/23/25 11:00 Brief Hx & Hospital Course: 60-year-old female with history of asthma, hypothyroidism, hyperlipidemia, and spinal stenosis presents to the ED with complaints of abdominal pain and bilateral leg weakness. She reports that for the past three days, she has been unable to move properly and has been experiencing worsening weakness in both legs over the past two weeks. She denies any falls, trauma, nausea, vomiting, or urinary complaints. Pain is described as severe, rated 10/10, and localized to the left lower quadrant, radiating to the back. She also reports significant constipation. She has a known history of spinal stenosis for which she was being followed by pain management and previously received epidural injections. She was on [place] in the past but states she is no longer taking opioids. Patient also stated pain in her tail bone Responded to lactulose and having BM Condition at Discharge: Good Final Diagnosis/Problems List #Acute intractable abdominal pain #Constipation, Abdominal CT: large amount of stool #Bilateral leg weakness #H/o of Severe cervical spondylosis/degenerative enthesopathy from C4-C5 through C6-C7 #H/o asthma #H/o hyperlipidemia #hypertension #hypothyroidism? #Obestity grade 2, BMI 36.7 Discharge Disposition: Home Discharge Instruct/Medications Diet: Regular Activity: No Restrictions, As Tolerated Follow Up/Referral: PCP in 7 days Medications: same home medications Discharge Statement: "Patient was advised to return to the ER or call 911 if any headaches, dizziness, shortness of breath, chest pain, abdominal pain, bleeding, fevers, or worsening of medical condition. Patient was counseled about treatment plan, medications, possible side effects, patientverbalized understanding. All questions were answered to the best of my ability. This discharge took greater then 30 minutes in planning, reviewing documentation, counseling the patient, and discussing with other team members." ASSESSMENT ASSESSMENT Assessment Constipation Date of Service: March 24, 2025 Billing Provider: ALEX RUIZ MD Common Visit Codes: 51163-VMO/OBS DISCH DAY >30min ALEX RUIZ MD March 24, 2025 17:44
== END 2025-03-24 17:55 | disposition home health service (06) | DRG 247 ==
LOC: EDBD 15:38 → ER 15:38 → OVERFLOW 22:13 → CENTRAL 03-23 03:23
PROVIDERS: ADMIT Hospitalist; ATTEND Hospitalist
DX: K56.41 Fecal impaction (principal); E03.9 Hypothyroidism, unspecified; I10 Essential (primary) hypertension; E78.5 Hyperlipidemia, unspecified; J45.909 Unspecified asthma, uncomplicated; M48.02 Spinal stenosis, cervical region; Z68.36 Body mass index [BMI] 36.0-36.9, adult; E66.9 Obesity, unspecified; M47.812 Spondylosis without myelopathy or radiculopathy, cervical region; R53.1 Weakness; M46.02 Spinal enthesopathy, cervical region; Z83.3 Family history of diabetes mellitus; Z88.1 Allergy status to other antibiotic agents
CPT/HCPCS: 36415; 74176; 80053; 80307; 81001; 82962; 83036; 83690; 84443; 85025; 96361; 96374; 96375; G0378; J1885; J2405

== ENCOUNTER 2025-10-24 10:35 | Emergency (ER) | payer MEDICAID ==
[~2025-10-24] VITALS: Ht 170.2 cm; Wt 107.9 kg
[~2025-10-24 10:35] MED LIST changes: -AZITTAB PO; -FAMO20TA10 PO; -FLUT1AER3 IN; +HYDR-4069 PO; -HYDR-4833 PO; -INSLANTI SC; -INSU1MIS44 XX; -PRED20TA2 PO; +TIRZ7.5I SC
[2025-10-24 10:36] VITALS: TEMP 97.8
[2025-10-24 11:20] VITALS: BP 106/81
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
[2025-10-24 12:01] VITALS: PULSE 67; RESP 20; O2SAT 95
== END 2025-10-24 12:03 | disposition home or self-care (01) ==
LOC: ER 10:35
DX: S61.212A Laceration without foreign body of right middle finger without damage to nail, initial encounter (principal); I10 Essential (primary) hypertension; Z90.49 Acquired absence of other specified parts of digestive tract; Z88.1 Allergy status to other antibiotic agents; W26.0XXA Contact with knife, initial encounter; Y93.89 Activity, other specified; Y92.89 Other specified places as the place of occurrence of the external cause; Y99.8 Other external cause status
CPT/HCPCS: 12001; 99282; A4649